=== PATIENT | female | born 1940 | race Caucasian/White ===

== ENCOUNTER 2016-07-12 10:42 | Emergency (ER) | payer MEDICARE, BC ==
[2016-07-12 10:53] VITALS: BP 172/88
[2016-07-12] MEDS ORDERED: Acetaminophen TAB* 325 MG PO ONE (11:32)
--- NOTE | 2016-07-12 11:39 | UC ---
Shoulder Pain HPI - HPI Summary HPI Summary: ONSET OF LEFT SHOULDER PAIN LAST NIGHT AFTER GETTING READY FOR BED. POSSIBLY OVERSTRETCHED IT WHILE RAISING ARMS OVER HEAD TO CHANGE CLOTHES BUT NOT AWARE OF ANY DISCRETE INJURY. COULD NOT SLEEP DUE TO PAIN WHICH IS PERSISTENT. DENIES CP, SOB, NAUSEA, SWEATS. HAS KNOWN H/O AFIB. - History of Current Complaint Chief Complaint: UCUpperExtremity Stated Complaint: ARM PAIN Time Seen by Provider: 07/12/16 11:26 Hx Obtained From: Patient Onset/Duration: Sudden Onset, Lasting Hours, Still Present Timing: Constant Severity Initially: Severe Severity Currently: Severe Location Of Pain: Is Discrete @ - LEFT SHOULDER Pain Intensity: 10 Pain Scale Used: 0-10 Numeric Character: Sharp Aggravating Factor(s): Movement Alleviating Factor(s): Rest Associated Signs And Symptoms: Positive: Negative - Allergies/Home Medications Allergies/Adverse Reactions: Allergies Allergy/AdvReac Type Severity Reaction Status Date / Time Codeine Allergy Severe "MAKES Verified 01/30/16 11:00 FEEL LIKE I'M FLYING" PMH/Surg Hx/FS Hx/Imm Hx Endocrine History Of: Denies: Diabetes, Thyroid Disease Cardiovascular History Of: Reports: Hypertension, Atrial Fibrillation Denies: Cardiac Disorders, Pacemaker/ICD, Congestive Heart Failure Respiratory History Of: Reports: Bronchitis - HX OF Denies: COPD, Asthma GI/ History Of: Denies: Ulcer Psychological History Of: Reports: Depression - OCCASIONALLY, CONTROL WITH MEDS Cancer History Of: Denies: Breast Cancer Other History Of: Anticoagulant Therapy - Surgical History Surgical History: Yes Surgery Procedure, Year, and Place: T&A, TUBAL LIGATION, APPENDECTOMY, CHOLECYSTECTOMY, RIGHT HIP REPLACEMENT, Right TKA - Family History Known Family History: Positive: Cardiac Disease - Mother, Father, Grandfather, Grandmother, Hypertension, Diabetes - Social History Alcohol Use: Occasionally Substance Use Type: None Smoking Status (MU): Former Smoker Type: Cigarettes Amount Used/How Often: 1 PPD Have You Smoked in the Last Year: No When Did the Patient Quit Smoking/Using Tobacco: 1997 Household Exposure Type: Cigarettes - Immunization History Most Recent Influenza Vaccination: 2014 Most Recent Tetanus Shot: 2011 Most Recent Pneumonia Vaccination: 2014 Review of Systems Constitutional: Negative Skin: Negative Respiratory: Negative Cardiovascular: Negative Gastrointestinal: Negative Musculoskeletal: Arthralgia, Decreased ROM All Other Systems Reviewed And Are Negative: Yes Physical Exam Triage Information Reviewed: Yes Appearance: Well-Appearing, Well-Nourished, Pain Distress - SEVERE DISTRESS WITH PALPATION OF LEFT SHOULDER Vital Signs: Initial Vital Signs Temp 97.3 F 07/12/16 10:48 Pulse 97 07/12/16 10:48 Resp 18 07/12/16 10:48 BP 172/88 07/12/16 10:48 Pulse Ox 95 07/12/16 10:48 Vital Signs Reviewed: Yes Eyes: Positive: Conjunctiva Clear ENT: Positive: Hearing grossly normal Neck: Positive: Supple Respiratory: Positive: No respiratory distress, No accessory muscle use Cardiovascular: Positive: Other: - IRREGULAR Abdomen Description: Positive: Soft Musculoskeletal: Positive: No Edema, ROM Limited @ - LEFT SHOULDER, Other: - EXQUISITELY TTP OVER GH JOINT. Neurological: Positive: Alert Psychological: Positive: Age Appropriate Behavior Diagnostics - Radiology LEFT SHOULDER XRAY Xray Interpretation: No Acute Changes Radiology Interpretation Completed By: Radiologist - EKG Cardiac Rate: NL - 89BPM Cardiac Rhythm: AFib: Old ST Segment: Normal Shoulder Course/Dx - Differential Dx/Diagnosis Differential Diagnosis/HQI/PQRI: Arthritis, Bursitis, Rotator Cuff Injury, Sprain, Strain, Other Provider Diagnoses: LEFT SHOULDER PAIN Discharge - Discharge Plan Condition: Stable Disposition: HOME Prescriptions: Hydrocodone-Acetaminophen [Lorcet 5-325 mg] 1 tab PO QID PRN #15 tab MDD 4 PRN Reason: Pain Patient Education Materials: Adhesive Capsulitis (ED), Shoulder Pain (ED) Referrals: Idalia Atwood MD [Medical Doctor] - 1 Week Berta Smith MD [Primary Care Provider] - If Needed Additional Instructions: OSTEOARTHRITIS ON XRAY TODAY BUT NOTHING ACUTE. SLING FOR COMFORT. HYDROCODONE/ APAP NEEDED. FOLLOW-UP WITH ORTHO IF SX NOT IMPROVING OVER THE NEXT WEEK OR SO,
--- NOTE | 2016-07-12 12:06 | RAD ---
HISTORY: Pain, decreased range of motion COMPARISONS: December 15, 2011 VIEWS: 4, Frontal internal rotation, external rotation, and outlet views of the left shoulder FINDINGS: BONE DENSITY: Normal. BONES: There is no displaced fracture. JOINTS: There is advanced osteoarthritis of the glenohumeral joint. ALIGNMENT: There is no dislocation. SOFT TISSUES: Unremarkable. OTHER FINDINGS: None. IMPRESSION: OSTEOARTHRITIS. NO ACUTE OSSEOUS INJURY. IF SYMPTOMS PERSIST, RECOMMEND REPEAT IMAGING.
== END 2016-07-12 12:36 | disposition home or self-care (01) ==
LOC: UCEAST 10:42
DX: M25.512 Pain in left shoulder (principal); Z88.5 Allergy status to narcotic agent; I48.91 Unspecified atrial fibrillation; Z79.01 Long term (current) use of anticoagulants; Z90.49 Acquired absence of other specified parts of digestive tract; Z96.641 Presence of right artificial hip joint; Z87.891 Personal history of nicotine dependence
CPT/HCPCS: 93005; 99212; A9270-GY; G0463

== ENCOUNTER 2016-11-29 11:58 | Inpatient (IN) | payer MEDICARE, BC ==
--- NOTE | 2016-11-21 03:56 | HP ---
PREOPERATIVE HISTORY AND PHYSICAL: DATE OF SURGERY: 11/29/16 DATE OF OFFICE VISIT: 11/18/16 ATTENDING SURGEON: Idalia tAwood MD * (DICTATED BY ALBA MEJIA) PROCEDURE: Left total hip replacement. CHIEF COMPLAINT: Left hip pain. HISTORY OF PRESENT ILLNESS: Ms. Ball is a 75-year-old female, who presents to the clinic for ongoing left hip pain due to severe osteoarthritis. She has failed conservative measures and has therefore agreed to undergo a left total hip replacement with Dr. Atwood on 11/29/16. PAST MEDICAL HISTORY: 1. Obesity. 2. Hypertension. 3. Hypercholesterolemia. 4. Atrial fibrillation. 5. Prediabetes. 6. GERD. PAST SURGICAL HISTORY: 1. Cholecystectomy. 2. Right total hip arthroplasty. 3. Right total knee arthroplasty. 4. Tubal ligation. 5. Tonsillectomy. 6. Adenoidectomy. Denies prior complications with anesthesia. MEDICATIONS: 1. Benzonatate 100 mg 1 by mouth 3 times a day as needed for cough. 2. Losartan potassium/hydrochlorothiazide 100/25 mg 1 by mouth every day. 3. Leg compression machine, use once a day in the evening. 4. Medical alert bracelet or necklace use as needed for emergencies. 5. Compression stockings 20/30 wear during the day, off at night. 6. Nystatin triamcinolone 946285-4.1 units per g, apply twice a day as needed for rash. 7. Bupropion 150 mg take 1 tablet every night. 8. Xarelto 20 mg take 1 by mouth once daily. 9. Aspirin 81 mg daily. 10. Multivitamin 1 daily. 11. Vitamin C 1000 mg 1 every day. 12. [place] 3-6-9 complex 1 tab daily. 13. Famotidine 20 mg take 1 by mouth twice a day as needed. 14. Simvastatin 40 mg take 1 by mouth once a day. 15. Keflex 500 mg 1 by mouth 3 times a day for 7 days. ALLERGIES: To CODEINE. FAMILY HISTORY: Positive for cancer, diabetes, and heart disease. Denies family history of DVT or PE. SOCIAL HISTORY: She lives alone. She is retired. She is a former smoker. She quit in 1997. She denies alcohol or illegal drug use. REVIEW OF SYSTEMS: Negative for fever, chills, night sweats. No known anesthesia problems. HEENT: Negative for headache, lightheadedness, or syncopal episodes. Integumentary: Negative for abrasions, lesions, or open wounds. Cardiothoracic: Positive for hypertension and AFib. Denies chest pain , palpitations, or edema. Pulmonary: Positive for mild shortness of breath with exertion. Denies COPD. GI: Negative for nausea, vomiting, diarrhea, or constipation. Positive for intermittent GERD. : Negative for nocturia, urinary frequency, history of UTIs, or kidney problems. Neuro: Denies numbness , tingling, history of seizure, stroke, epilepsy. Heme: Positive for easy bruising due to the Xarelto. Denies history of bleeding disorders, denies history of DVT or PE. Infectious Disease: Negative for history of MRSA, hep C , or HIV. PHYSICAL EXAMINATION GENERAL: Well-developed, well-nourished 75-year-old female, in no acute distress. Alert and oriented x3. Appropriate mood and affect. Appropriate balance and coordination. VITAL SIGNS: Height 62, weight 226, pulse 92, blood pressure 130/68, temperature 97.1, O2 sat 98%, BMI 41.3. HEENT: Normocephalic, atraumatic. Throat clear. NECK: Supple. PULMONARY: Lungs are clear to auscultation bilaterally. No wheezing, rhonchi, or rales. CARDIO: Regular rate and rhythm. S1 and S2. No murmurs, rubs, or gallops. No edema. ABDOMEN: Positive bowel sounds. Soft, nontender. NEURO: Alert and oriented x3. Cranial nerves grossly intact. Sensation intact to light touch. MUSCULOSKELETAL: Left lower extremity, skin is intact. No abrasions or open wounds, tenderness to palpation over the trochanteric bursa. Hip flexion to 90 degrees, internal rotation to 0 degrees, and 40 degrees of external rotation with severe groin pain, moderate effusion of the knee. No palpable masses or lymph nodes, +5/5 strength ankle plantar flexion and dorsiflexion, +2 posterior tibialis and dorsalis pedis pulses. Sensation intact to light touch distally. DIAGNOSTIC STUDIES/LAB DATA: Multi-view x-rays of the left hip revealed end- stage arthritis with [id number] contact, subchondral sclerosis, and osteophyte formation. IMPRESSION: Left hip severe osteoarthritis. PLAN: The patient is scheduled to undergo a left total hip replacement with Dr. Atwood on 11/29/16. Dr. Atwood explained the risks and complications of the procedure and the patient has agreed to undergo the procedure. She will stop Xarelto 3 days before surgery and it will be continued after surgery per Cardiology's recommendation. She has been cleared by her PCP and her quantitative strategy analyst. She does have a wound on her left lower extremity that has since healed. She will follow up with Dr. Atwood in 10 to 14 days for followup and suture removal. Percocet will be used for postop pain management, Colace for opioid-induced constipation prevention, and the patient's own Xarelto will be used for DVT prophylaxis. ALBA MEJIA [id number]/[facility] #: [id number] MTDElizabeth
[~2016-11-29 11:58] MED LIST: Buffered Lidocaine 0.9% SYRIN* 5 ML/SYR SYRINGE INTRADERM ONE; Buffered Lidocaine 0.9% SYRIN* 5 ML/SYR SYRINGE ONE; Famotidine IV* 10 MG/ML 2 ML (20 mg) IV ONE; Famotidine IV* 10 MG/ML 2 ML (20 mg) ONE; Gabapentin CAP(*) 300 MG ONE; Gabapentin CAP(*) 300 MG PO ONE; ceFAZolin 2 GM PREMIX(*) 2 GM/50 ML BAG IVPB ONE
[2016-11-29] MEDS ORDERED: Midazolam* 1 MG/ML 5 ML VIAL (5 MG) ONE (13:16)
[2016-11-29] MEDS ORDERED: fentaNYL* 50 MCG/ML 2 ML VIAL (100 MCG VIAL) ONE (13:16)
[2016-11-29] MEDS ORDERED: Morphine PF AMP (0.5MG/ML)* 5 MG/10 ML AMP ONE (15:20)
[2016-11-29] MEDS ORDERED: KETAMINE HCL* 50 MG/ML 10 ML VIAL ONE (15:55)
[2016-11-29] MEDS ORDERED: EPHEDrine (Pressors)* 50 MG/ML VIAL ONE (16:26)
[2016-11-29] MEDS ORDERED: Phenylephrine IV* 40 MCG/ML 10 ML SYRINGE ONE (16:26)
[2016-11-29] MEDS ORDERED: Glycopyrrolate IV* 0.2 MG/ML 1 ML VIAL ONE (16:26)
[2016-11-29] MEDS ORDERED: Propofol* 10 MG/ML 20 ML BTL IV PUSH ONE (16:27)
[2016-11-29] MEDS ORDERED: DiMENhydriNATE IV* 50 MG/ML VIAL ONE (16:27)
[2016-11-29] MEDS ORDERED: Ketorolac INJ* 30 MG/ML 1 ML VIAL ONE (16:27)
[2016-11-29] MEDS ORDERED: Ondansetron INJ* 2 MG/ML VIAL ONE (16:27)
[2016-11-29] MEDS ORDERED: Dexamethasone IV* 4 MG/ML 1 ML (4 MG) ONE (16:27)
[2016-11-29] MEDS ORDERED: Acetaminophen TAB* 325 MG PO PRN (17:29)
[2016-11-29] MEDS ORDERED: Ondansetron TAB* 4 MG PO PRN (17:29)
[2016-11-29] MEDS ORDERED: diPHENhydraMINE PO* 25 MG PO PRN (17:29)
[2016-11-29] MEDS ORDERED: diPHENhydraMINE IV* 50 MG/ML 1 ml VIAL (BENADRYL) IV PRN (17:29)
[2016-11-29] MEDS ORDERED: Polyethylene Glycol 3350* 17 GM PACKET PO PRN (17:36)
[2016-11-29] MEDS ORDERED: Bisacodyl SUPP* 10 MG SUPP PR PRN (17:36)
[2016-11-29] MEDS ORDERED: DiMENhydriNATE IV* 50 MG/ML VIAL IV PUSH PRN (17:39)
[2016-11-29] MEDS ORDERED: HYDROmorphone* 1 MG/ML 1 ML SYR IV PRN (17:39)
[2016-11-29] MEDS ORDERED: oxyCODONE/Acetamin 5/325 MG* TAB PO PRN (17:39)
[2016-11-29] MEDS ORDERED: Clotrimazole/Betamethasone CREAM* 15 GM TOPICAL PRN (17:40)
[2016-11-29] MEDS ORDERED: Benzonatate CAP* 100 MG PO PRN (17:40)
[2016-11-29] MEDS ORDERED: Naloxone* 0.4 MG/ML 1 ML VIAL IV PRN (17:41)
[2016-11-29] MEDS ORDERED: Nalbuphine* 20 MG/ML 1 ML VIAL IV PRN (17:41)
[2016-11-29] MEDS ORDERED: Gabapentin CAP(*) 100 MG PO ONE (17:47)
--- NOTE | 2016-11-29 18:35 | RAD ---
Indication: LEFT hip replacement. Comparison: October 17, 2016 Technique: Low AP pelvis RIGHT decubitus crosstable lateral technique. Report: LEFT acetabular component and test fit/reamer femoral component in place. No periprosthetic fracture evident. IMPRESSION: Intraoperative control film.
[2016-11-29] MEDS ORDERED: Gabapentin CAP(*) 100 MG ONE (19:38)
--- NOTE | 2016-11-29 20:01 | RAD ---
Indication: Postop LEFT total hip replacement. Comparison: Intraoperative exam of the same date. Technique: AP pelvis and AP and crosstable lateral views LEFT hip. Report: LEFT total hip prosthesis in place with normal alignment. No periprosthetic fracture evident. Peripheral soft tissue edema and subcutaneous emphysema. RIGHT hip prosthesis noted. Polyarticular degenerative arthropathy. IMPRESSION: Unremarkable immediate postop follow-up LEFT total hip prosthesis.
[2016-11-29] MEDS ORDERED: HYDROCHLO PO SCH (21:00)
[2016-11-29] MEDS ORDERED: LOSARTAN POTASSIUM PO SCH (21:00)
[2016-11-29] MEDS: Docusate CAP* 100 MG PO SCH (21:42)
[2016-11-29] MEDS: Atorvastatin* 20 MG TAB PO SCH (21:42)
[2016-11-29] MEDS: buPROPion SR TAB.SR* 150 MG PO SCH (21:42)
[2016-11-29] MEDS: Magnesium Hydroxide LIQ* 30 ML UDC PO SCH (21:44)
[2016-11-29] MEDS: Ibuprofen TAB* 600 MG PO SCH (23:45)
[2016-11-29] MEDS: ceFAZolin VIAL(*) 1 GM in NS 0.9% 50 ML* 50 ML IVPB SCH (23:45)
--- NOTE | 2016-11-30 00:36 | CONS ---
CC: Jennifer Boo NP * MEDICAL CONSULTATION REPORT: DATE OF CONSULTATION: 11/29/16 REQUESTING PROVIDER: Idalia Atwood MD CONSULTING PROVIDER: ALBA Corrigan SUPERVISING PHYSICIAN: Jose Sawant MD REASON FOR CONSULT: Status post left total hip arthroplasty with request for consultation regarding medical co-management. HISTORY OF PRESENT ILLNESS: This is a 75-year-old female with atrial fibrillation, chronically anticoagulated on Xarelto as well as hypertension, hyperlipidemia, GERD, obesity, and prediabetes, who presented today for elective left total hip arthroplasty with Dr. Atwood. Hospitalist group has been asked to consult for medical co-management. The patient was evaluated by her orchid worker, Dr. Paul, and primary care provider, Dr. Boo, preoperatively. Dr. Paul did not suggest any additional cardiac imaging preoperatively. Last stress test was November 2015 and within normal limits. Dr. Boo did not recommend any changes preoperatively, but did treat with 7 days of Keflex for some mild erythema of the left faith that was associated with a dog scratch. The patient states that that has since resolved. The patient is evaluated postoperatively and she denies significant surgical site pain. Denies chest pain, shortness of breath, abdominal pain, nausea, or vomiting. She denies any recent illness or other cardiac complaints. The patient interrupted her Xarelto as instructed. Her last dose was 11/25/16. She also discontinued various supplements that she was instructed to do so, including fish oil and her 81 mg aspirin that would be implicated in increased bleeding risk. Recommend per Cardiology is to resume Xarelto postoperatively. The patient did not receive any bridging therapy. PAST MEDICAL HISTORY: 1. Hypertension. 2. Hyperlipidemia. 3. AFib. 4. Prediabetes. 5. GERD. 6. Obesity with a BMI of 37. PAST SURGICAL HISTORY: 1. Cholecystectomy. 2. Right total hip replacement. 3. Right total knee replacement. 4. Tubal ligation. 5. Tonsil and adenoidectomy. HOME MEDICATIONS: 1. Acetaminophen 2 tablets p.o. q.8 hours as needed for pain or fever. 2. Vitamin C supplement 1000 mg p.o. daily. 3. Aspirin 81 mg p.o. daily. 4. Tessalon 100 mg p.o. t.i.d. as needed for cough. 5. Clotrimazole/betamethasone cream apply topically twice daily as needed for rash. 6. Pepcid 20 mg p.o. twice daily as needed. 7. Losartan/hydrochlorothiazide, unknown concentration with instructions to take 1 tab p.o. at bedtime. 8. Multivitamin 1 capsule p.o. daily. 9. [place]-3 fatty acid 1 capsule p.o. daily. 10. Xarelto 20 mg p.o. daily. 11. Simvastatin 40 mg p.o. at bedtime. 12. Wellbutrin sustained release 150 mg p.o. at bedtime. SOCIAL HISTORY: The patient lives alone. She quit smoking in 1997 and rarely consumes alcohol. REVIEW OF SYSTEMS: As noted above in HPI. All other systems reviewed and considered negative. PHYSICAL EXAMINATION: Most recent vitals: Temperature 96.8 degrees Fahrenheit , pulse 68 beats per minute, respiratory rate 14, oxygen saturation 99% on 3 L, and blood pressure 124/55 mmHg. General: This is a pleasant 75-year-old female accompanied by multiple family members, in no acute distress. HEENT: Head is normocephalic and atraumatic. Mucous membranes are pink and moist. Neck: Neck is supple and free of lymphadenopathy. Cardiovascular: Heart has a regular rate and rhythm without murmurs, rubs, or gallops. Respiratory: Lungs are clear to auscultation without wheezes, crackles, or rhonchi. Abdomen : Abdomen is soft and nontender to palpation. Extremities: She has a hip pillow in place. Distal pulses intact without significant edema. Psych: The patient is alert and appropriately oriented. LABORATORY EVALUATION: Reviewed labs from 11/15/16, which included normal CBC with a white blood cell count of 6600, hemoglobin of 13.7 g/dL, platelet count of 304,000. Comprehensive metabolic panel is unremarkable with a preop creatinine of 0.81. Urinalysis is unremarkable. TSH is 1.03. Last hemoglobin A1c from August 2016 was 5.7%. ASSESSMENT AND PLAN: This is a pleasant 75-year-old female with hypertension, hyperlipidemia, chronic AFib, prediabetes, obesity, and gastroesophageal reflux disease, who underwent elective total hip arthroplasty with Dr. Atwood earlier today. Hospitalist group has been asked to consult for her medical comanagement. 1. Status post left total hip arthroplasty - postop management per Orthopedic Surgery including DVT prophylaxis, pain management and discharge planning. 2. Atrial fibrillation - this appears to be appropriately rate controlled. She is chronically anticoagulated with Xarelto which has been interrupted preoperatively. We would recommend resuming tomorrow if deemed acceptable by Orthopedic Surgery team. 3. Hypertension - we will hold her losartan and hydrochlorothiazide at this time and resume if blood pressure allows. 4. Hyperlipidemia. Continue simvastatin. 5. Depression. Continue Wellbutrin. 6. Prediabetes - last hemoglobin A1c of less than 6%. I do not believe that regular glucose monitoring is necessary postoperatively. 7. Code status. The patient is full code. 8. DVT prophylaxis. Xarelto per Orthopedic Surgery. 9. Healthcare proxy is unknown. DISPOSITION: The patient is being admitted to inpatient status under the care of orthopedic surgery team. Hospitalist group will continue to follow along during her postoperative course. ALBA CORRIGAN [id number]/[facility] #: [id number] TOMI
[2016-11-30] MEDS: oxyCODONE/Acetamin 5/325 MG* TAB PO PRN ×3 (03:13→11:55)
[2016-11-30] MEDS: Ibuprofen TAB* 600 MG PO SCH ×2 (05:13→10:16)
[2016-11-30 05:58] LABS: Hematocrit 33 % (35-47); Hemoglobin 10.8 g/dl (12.0-16.0)
[2016-11-30 06:09] LABS: BUN/Creatinine Ratio 20.2 (8-20); Calcium 8.4 mg/dL (8.6-10.3); EGFR African American 74.3 (>60); EGFR Non-African American 57.7 (>60); Potassium 4.3 mmol/L (3.5-5.0)
[2016-11-30] MEDS ORDERED: NS 0.9% 500 ML BAG* 500 ML IV ONE (07:00)
[2016-11-30] MEDS ORDERED: Morphine INJ* 10 MG/ML 1 ML SYRINGE IV PRN (07:35)
[2016-11-30] MEDS: ceFAZolin VIAL(*) 1 GM in NS 0.9% 50 ML* 50 ML IVPB SCH ×2 (08:33→15:52)
[2016-11-30] MEDS: Docusate CAP* 100 MG PO SCH ×2 (08:34→21:00)
[2016-11-30] MEDS: oxyCODONE TAB* 5 MG TAB PO PRN ×3 (08:34→21:00)
[2016-11-30] MEDS: Multivitamins/Minera Areds(NF) 1 CAP CAP PO SCH (08:35)
[2016-11-30] MEDS: Magnesium Hydroxide LIQ* 30 ML UDC PO SCH ×2 (08:35→21:01)
[2016-11-30] MEDS: Aspirin EC Low Dose* 81 MG TAB.EC PO SCH (08:35)
[2016-11-30] MEDS: Vitamin THERAPEUTIC TAB PO SCH (08:35)
[2016-11-30] MEDS ORDERED: Rivaroxaban TAB(*) 20 MG TAB PO SCH (09:00)
--- NOTE | 2016-11-30 10:12 | PN ---
Progress Note - Progress Note Date of Service: 11/30/16 SOAP: Subjective: []Patient seen at bedside, pain well managed. Denies SOB, CP or dizziness. Would like to be considered for PMRU rehab. Objective: [] Vital Signs Temp 98.5 F 11/30/16 07:42 Pulse 81 11/30/16 07:42 Resp 18 11/30/16 08:34 BP 126/48 11/30/16 07:42 Pulse Ox 93 11/30/16 09:14 Intake & Output 11/29/16 11/30/16 11/30/16 18:59 06:59 18:59 Intake Total 1900 2005 501 Output Total 250 150 Balance 1650 1855 501 Weight 226 lb Intake: IV Fluids 1900 945 501 ABX - CEFAZOLIN 55 L 1900 LR 890 NS (0.9%) 501 Oral 1060 Output: Haji 250 150 Other: # Bowel Movements 0 Laboratory Results - last 24 hr 11/29/16 11/30/16 11/30/16 12:26 05:12 05:12 Hgb 10.8 L Hct 33 L INR (Anticoag Therapy) 0.97 1.06 Sodium Potassium Chloride Carbon Dioxide Anion Gap BUN Creatinine Est GFR ( Amer) Est GFR (Non-Af Amer) BUN/Creatinine Ratio Glucose Calcium 11/30/16 05:12 Hgb Hct INR (Anticoag Therapy) Sodium 137 Potassium 4.3 Chloride 104 Carbon Dioxide 28 Anion Gap 5 BUN 19 Creatinine 0.94 Est GFR ( Amer) 74.3 Est GFR (Non-Af Amer) 57.7 BUN/Creatinine Ratio 20.2 H Glucose 135 H Calcium 8.4 L Left hip dressings are dry and intact calf mild tenderness to palpation, Elizabeth's sign negative +DF/PF left ankle sensation intact distally Assessment: []s/p Left total hip arthroplasty POD #1 Plan: []PT/OT WBAT LLE Hold Xarelto per Rakesh Herrera while in house PMRU consult
[2016-11-30] MEDS: Enoxaparin(*) 40 MG/0.4 ML SYR SUBCUT SCH (10:17)
--- NOTE | 2016-11-30 11:51 | PN ---
Subjective Date of Service: 11/30/16 Interval History: Patient seen and examined at bedside. She reports good pain control, denies CP, SOB, abd pain, n/v. No acute concerns expressed at this time. Family History: Unchanged from Admission Social History: Unchanged from Admission Past Medical History: Unchanged from Admission Objective Active Medications: Acetaminophen (Tylenol Tab*) 650 mg PO Q4H PRN PRN Reason: mild pain or fever Aspirin (Aspirin Ec Low Dose*) 81 mg PO DAILY [facility] Last Admin: 11/30/16 08:35 Dose: 81 mg Atorvastatin Calcium (Lipitor*) 20 mg PO BEDTIME [facility] Last Admin: 11/29/16 21:42 Dose: 20 mg Benzonatate (Tessalon Cap*) 100 mg PO TID PRN PRN Reason: COUGH Betamethasone/Clotrimazole (Lotrisone Cream*) 1 applic TOPICAL BID PRN PRN Reason: RASH Bisacodyl (Dulcolax Supp*) 10 mg [place] DAILY PRN PRN Reason: constipation Bupropion HCl (Wellbutrin Sr Tab*) 150 mg PO BEDTIME [facility] Last Admin: 11/29/16 21:42 Dose: 150 mg Diphenhydramine HCl (Benadryl Iv*) 12.5 mg IV Q6H PRN PRN Reason: PRURITIS Diphenhydramine HCl (Benadryl Po*) 25 mg PO Q6H PRN PRN Reason: INSOMNIA Docusate Sodium (Colace Cap*) 100 mg PO BID [facility] Last Admin: 11/30/16 08:34 Dose: 100 mg Enoxaparin Sodium (Lovenox(*)) 40 mg SUBCUT DAILY [facility] Last Admin: 11/30/16 10:17 Dose: 40 mg Famotidine (Pepcid Tab*) 20 mg PO BID PRN PRN Reason: HEARTBURN Cefazolin Sodium 1 gm/ Sodium (Chloride) 50 mls @ 200 mls/hr IVPB Q8H [facility] Stop: 11/30/16 16:14 Last Admin: 11/30/16 08:33 Dose: 200 mls/hr Lactated Ringer's (Lactated Ringers 1000 Ml Bag*) 1,000 mls @ 100 mls/hr IV PER RATE [facility] Last Admin: 11/30/16 07:06 Dose: 100 mls/hr Ibuprofen (Motrin Tab*) 600 mg PO Q6H [facility] Stop: 11/30/16 14:00 Last Admin: 11/30/16 10:16 Dose: 600 mg Lactulose (Lactulose*) 30 ml PO Q6H PRN PRN Reason: constipation Magnesium Hydroxide (Milk Of Magnesia Liq*) 30 ml PO BID [facility] Last Admin: 11/30/16 08:35 Dose: 30 ml Morphine Sulfate (Morphine Inj (Syringe)*) 5 mg IV Q2H PRN PRN Reason: PAIN Multivitamins (Theragran Tab*) 1 tab PO DAILY [facility] Last Admin: 11/30/16 08:35 Dose: 1 tab Multivitamins/Minerals (Preservision Areds(Multivitamins/Mineral)(Nf)) 1 cap PO DAILY [facility] Last Admin: 11/30/16 08:35 Dose: Not Given Ondansetron HCl (Zofran Inj*) 4 mg IV Q6H PRN PRN Reason: nausea Ondansetron HCl (Zofran Tab*) 4 mg PO Q6H PRN PRN Reason: NAUSEA Oxycodone HCl (Roxycodone Tab*) 10 mg PO Q4H PRN PRN Reason: breakthru pain Last Admin: 11/30/16 08:34 Dose: 10 mg Oxycodone/Acetaminophen (Percocet 5/325 Tab*) 1 tab PO Q3H PRN PRN Reason: PAIN - MODERATE Oxycodone/Acetaminophen (Percocet 5/325 Tab*) 1 tab PO ONCE PRN PRN Reason: PAIN - MODERATE Stop: 11/30/16 17:40 Polyethylene Glycol/Electrolytes (Miralax*) 17 gm PO DAILY PRN PRN Reason: Constipation Vital Signs 11/29/16 11/29/16 11/29/16 12:27 18:25 18:30 Temperature 97.9 F 102.0 F Pulse Rate 84 77 61 Respiratory 16 14 16 Rate Blood Pressure 139/78 93/50 104/52 (mmHg) O2 Sat by Pulse 96 97 95 Oximetry 11/29/16 11/29/16 11/29/16 18:35 19:00 19:15 Temperature Pulse Rate 56 53 75 Respiratory 12 10 14 Rate Blood Pressure 106/56 106/60 149/92 (mmHg) O2 Sat by Pulse 95 97 97 Oximetry 11/29/16 11/29/16 11/29/16 19:30 19:46 20:00 Temperature 96.8 F Pulse Rate 75 52 68 Respiratory 13 12 14 Rate Blood Pressure 156/85 126/58 124/55 (mmHg) O2 Sat by Pulse 99 99 99 Oximetry 11/29/16 11/29/16 11/29/16 20:40 20:41 21:43 Temperature 97.4 F 97.3 F Pulse Rate 72 58 Respiratory 16 16 16 Rate Blood Pressure 128/56 117/50 (mmHg) O2 Sat by Pulse 100 100 Oximetry 11/29/16 11/30/16 11/30/16 22:37 00:35 02:51 Temperature 97.7 F 97.3 F 98.0 F Pulse Rate 54 60 70 Respiratory 16 16 16 Rate Blood Pressure 110/62 117/88 132/45 (mmHg) O2 Sat by Pulse 100 98 93 Oximetry 11/30/16 11/30/16 11/30/16 03:13 05:13 06:20 Temperature Pulse Rate Respiratory 16 16 16 Rate Blood Pressure (mmHg) O2 Sat by Pulse Oximetry 11/30/16 11/30/16 11/30/16 07:42 08:00 08:20 Temperature 98.5 F Pulse Rate 81 Respiratory 16 16 18 Rate Blood Pressure 126/48 (mmHg) O2 Sat by Pulse 95 93 Oximetry 11/30/16 11/30/16 11/30/16 08:34 09:14 10:19 Temperature Pulse Rate Respiratory 18 18 Rate Blood Pressure (mmHg) O2 Sat by Pulse 93 Oximetry Oxygen Devices in Use Now: None Appearance: Older female, OOB to chair, in NAD Eyes: No Scleral Icterus Ears/Nose/Mouth/Throat: Clear Oropharnyx, Mucous Membranes Moist Neck: NL Appearance and Movements; NL JVP Respiratory: Symmetrical Chest Expansion and Respiratory Effort, Clear to Auscultation Cardiovascular: NL Sounds; No Murmurs; No JVD, RRR Abdominal: NL Sounds; No Tenderness; No Distention Extremities: - - trace edema to BLE, left hip dressing c/d/i, distally nvi Neurological: Alert and Oriented x 3, NL Muscle Strength and Tone Lines/Tubes/Other Access: Clean, Dry and Intact Peripheral IV Nutrition: Taking PO's Result Diagrams: 11/30/16 05:12 11/30/16 05:12 Assess/Plan/Problems-Billing Assessment: Ms. Ball is a 75 yo female with a PMH of HTN, HLD, atrial fib, depression, and prediabetes who was admitted on 11/29 for an elective left total hip replacement. - Patient Problems (1) Status post total replacement of left hip Code(s): Z96.642 - PRESENCE OF LEFT ARTIFICIAL HIP JOINT Comment: POD #1 Management per ortho HH stable PT/OT (2) Afib Code(s): I48.91 - UNSPECIFIED ATRIAL FIBRILLATION Comment: Rate controlled Pt is currently on enoxaparin per ortho. Restart rivaroxaban when ok with ortho. (3) HTN (hypertension) Code(s): I10 - ESSENTIAL (PRIMARY) HYPERTENSION Comment: Normotensive Continue to hold losartan and HCTZ at this time. Resume when blood pressure allows. (4) HLD (hyperlipidemia) Code(s): E78.5 - HYPERLIPIDEMIA, UNSPECIFIED Comment: Continue statin. (5) GERD (gastroesophageal reflux disease) Code(s): K21.9 - GASTRO-ESOPHAGEAL REFLUX DISEASE WITHOUT ESOPHAGITIS Comment : Continue home famotidine. (6) DVT prophylaxis Comment: Per ortho Enoxaparin (7) Full code status Code(s): Z78.9 - OTHER SPECIFIED HEALTH STATUS Status and Disposition: Inpatient admission. Dispo per ortho.
[2016-11-30] MEDS: Ondansetron INJ* 2 MG/ML VIAL IV PRN (15:27)
--- NOTE | 2016-11-30 15:35 | OP ---
DATE OF OPERATION: 11/29/16 - ROOM #342 DATE OF : 36. ATTENDING SURGEON: Idalia Atwood MD. HOME APPLIANCE TECHNICIAN: ALBA Vences. Ms. Villanueva did help throughout the procedure with preparation of the leg, wound retraction, manipulation of the hip, and closure. ANESTHESIOLOGIST: Dr. Hui. ANESTHESIA: Spinal. PREOPERATIVE DIAGNOSIS: Severe endstage degenerative osteoarthritis of the left hip joint. POSTOPERATIVE DIAGNOSIS: As above. OPERATIVE PROCEDURE: Left total hip arthroplasty. COMPLICATIONS: None. ESTIMATED BLOOD LOSS: 200 cc. SPECIMENS: Femoral head and acetabular reaming sent to Pathology. HARDWARE USED: [place] uncemented total hip hardware. For the cup, Tritanium cluster hole shell 56E, one 25-mm cancellous bone screw. For the insert, Trident X3 0-degree polyethylene insert 40E. For the femur size 4, Accolade TMZF, with a 127-degree neck. For the head, a Biolox delta ceramic head size 40 with a -2.5 taper adaptor sleeve. BRIEF HISTORY/INDICATION: Ms. Ball is a 75-year-old female with years of increasingly severe left hip pain. She failed conservative treatment with antiinflammatories, pain medication, ambulatory assistive devices, and physical therapy. Radiographs confirmed [id number] arthritis. She elected to undergo left total hip arthroplasty due to continued pain and decreased quality of life. Informed consent was obtained from the patient. She understood the risks of the surgery included, but were not limited to bleeding, infection, damage to nearby structures, continued pain, need for further surgery, intraoperative fracture, nerve palsy, hardware failure or loosening, dislocation, leg length discrepancy, stroke, heart attack, blood clot and . She wished to proceed. INTRAOPERATIVE FINDINGS: Intraoperatively, the patient was noted to have extensive wear of the acetabular bone with sclerosis. She had near protrusio. Femoral bone demonstrated osteopenia and complete loss of cartilage along the femoral head. She had extensive osteophyte formation along the acetabulum. DESCRIPTION OF PROCEDURE: Ms. Ball was identified in the preanesthesia unit. Her left lower extremity was marked as the correct operative side. Informed consent was signed and placed in the chart. The patient was taken to the operating room and placed under spinal anesthesia. A Haji catheter was placed. The patient was placed in the right lateral decubitus position on the peg board and all bony prominences were well padded. Left lower extremity was prepped and draped in usual sterile fashion. Preop time-out was made to correctly identify the patient's side and site. Appropriate perioperative antibiotics were given within 1 hour of incision. A 15-cm standard posterior hip incision was made with a #10 blade. Electrocautery was used to dissect down through the subcutaneous fat to the lateral fascial layer. Lateral fascial layer was incised in line with the skin incision. A Charnley retractor was placed. The piriformis and conjoint tendons were identified. These were elevated off the posterolateral femur using electrocautery and tagged with two #5 Ethibonds. Electrocautery was then used to make a posterior capsular flap and this was also tagged with two #5 Ethibonds. The hip was carefully dislocated. Lesser trochanter to the center of the femoral head measured 55 mm. Oscillating saw was used to make the appropriate femoral neck cut and the femoral head was sent to Pathology. Femoral head had complete loss of cartilage. The femur was carefully retracted anteriorly. After appropriate placement of retractor, the acetabulum was visualized. A long-handled knife was used to sharply remove the remaining labrum from the acetabular rim. The acetabular rim had significant rim of osteophytes. The acetabulum was sequentially reamed up to a size 55. Size 55 trial had a satisfactory fit. There was a bleeding subchondral bone bed for the implant. Final implant chosen with a cluster hole Tritanium shell size 56. This was impacted into the acetabulum without difficulty. Satisfactory abduction and anteversion was obtained. One 25-mm screw was placed in the superior posterior quadrant. A 40E Trident X3 0-degree polyethylene insert was chosen at the liner. This was impacted into the acetabulum without difficulty. Stability of the liner was checked and rechecked and noted to be stable. A thin osteotome was used to remove some rim osteophytes to avoid impingement with range of motion. Attention was turned next to preparation of the femur. A canal finder was used to enter the proximal femur. Osteopenia was noted. The femur canal was sequentially broached up to a size 4. Size 4 had good stability. A 127 neck trial with a 40, +0 femoral head was chosen. Lesser troch to center of the femoral head measured 58 mm. Therefore, a 40 -2.5 femoral head trial was chosen. Lesser trochanter to the center of the femoral head measured more near 55 mm. The hip was reduced and taken through range of motion. The hip was stable in all position with good soft-tissue tension. The hip was carefully dislocated. All trials were removed. Final implant chosen was size 4 Accolade TMZF stem, femoral stem with a 127-degree neck. This was impacted into the femoral canal without difficulty. There was good stability and anteversion of the stem. A 40, -2.5 Biolox delta ceramic femoral head was chosen and impacted onto the femoral neck. Lesser trochanter to the center of the femoral head measured 55 mm. The hip was reduced and taken through a range of motion. The hip was stable in all positions. The hip was copiously irrigated with sterile saline. Previously tagged capsule and tendons were reapproximated to the posterolateral femur through 2 trochanteric drill holes. The hip was once again copiously irrigated with sterile saline. Lateral fascial layer was closed using interrupted #1 Vicryls. The rest of the incision was closed in a layered fashion using 0 and 2-0 Vicryls. Skin was closed using running 3-0 Monocryl and Dermabond. Sterile Adaptic, 4x4s, and paper tape were used to cover the incision. The patient's anesthesia was reversed without difficulty. She was taken to the PACU in stable condition. Intended weightbearing will be weightbearing as tolerated with posterior hip precautions. Intended DVT prophylaxis will be Coumadin with a Lovenox bridge. [id number]/[facility] #: [id number] TOMI
--- NOTE | 2016-11-30 19:15 | PN ---
Hospitalist Progress Note Notified by nursing staff that there has been no urine output since Haji removed at 10a. Bladder scan reading zero. Recommended replacing the Haji for the night to monitor urine output and/or address acute retention that is not being accurately reflected by the bladder scanner.
[2016-11-30] MEDS: buPROPion SR TAB.SR* 150 MG PO SCH (21:00)
[2016-11-30] MEDS: Atorvastatin* 20 MG TAB PO SCH (21:00)
[2016-11-30] MEDS: Famotidine TAB* 20 MG PO PRN (23:38)
[2016-12-01] MEDS: oxyCODONE/Acetamin 5/325 MG* TAB PO PRN ×4 (03:57→23:58)
[2016-12-01 06:08] LABS: Hematocrit 30 % (35-47); Hemoglobin 9.8 g/dl (12.0-16.0)
[2016-12-01] MEDS: Vitamin THERAPEUTIC TAB PO SCH (08:26)
[2016-12-01] MEDS: Aspirin EC Low Dose* 81 MG TAB.EC PO SCH (08:26)
[2016-12-01] MEDS: Docusate CAP* 100 MG PO SCH ×2 (08:26→20:45)
[2016-12-01] MEDS: Enoxaparin(*) 40 MG/0.4 ML SYR SUBCUT SCH (08:27)
[2016-12-01] MEDS: oxyCODONE TAB* 5 MG TAB PO PRN (08:27)
[2016-12-01] MEDS: Magnesium Hydroxide LIQ* 30 ML UDC PO SCH ×2 (08:27→20:45)
[2016-12-01] MEDS: Multivitamins/Minera Areds(NF) 1 CAP CAP PO SCH (08:36)
[2016-12-01] MEDS: Famotidine TAB* 20 MG PO PRN (10:36)
[2016-12-01] MEDS ORDERED: traMADol TAB* 50 MG PO PRN (10:48)
--- NOTE | 2016-12-01 10:48 | PN ---
Progress Note - Progress Note Date of Service: 12/01/16 SOAP: Subjective: []Patient seen OOB in chair. Still having feelings of nausea with pain medications with or without food. Had urinary retention last night with vaughan catheter placement which was just removed this am. She was denied PMRU as she is doing very well in PT. She will hopes to go home tomorrow. Objective: [] Vital Signs Temp 98.0 F 12/01/16 07:52 Pulse 76 12/01/16 07:52 Resp 18 12/01/16 10:27 BP 137/49 12/01/16 07:52 Pulse Ox 95 12/01/16 08:00 Intake & Output 11/30/16 12/01/16 12/01/16 18:59 06:59 18:59 Intake Total 1989 2162 648 Output Total 150 550 Balance 1839 1612 648 Intake: IV Fluids 1184 1362 288 LR 683 1362 288 NS (0.9%) 501 IVPB 55 110 ABX - CEFAZOLIN 55 110 Oral 750 690 360 Output: Vaughan 150 550 Other: # Bowel Movements 0 Laboratory Results - last 24 hr 12/01/16 05:46 Hgb 9.8 L Hct 30 L Left hip dressings removed, minimal bloody drainage, incision healing well, + ecchymosis distal end of incision calf tenderness resolved +DF/PF left ankle sensation intact Assessment: []s/p Left total hip arthroplasty POD #2 Plan: []PT/OT WBAT try Tramadol for pain Lovenox in house, start Xarelto 20 mg qd at home after discharge Discharge home Monday if medically stable
[2016-12-01] MEDS ORDERED: PROCHLORPERAZINE INJ 5 MG/ML 2 ML VIAL IV PRN (12:08)
--- NOTE | 2016-12-01 12:08 | PN ---
Subjective Date of Service: 12/01/16 Interval History: Patient seen and examined at bedside. Patient reports adequate pain control. Required vaughan catheter to be reinserted overnight due to urinary retention Resolved this morning, no previous hx of urinary retention. Denies dysuria Denies CP, SOB, n/v, fever/chills. Family History: Unchanged from Admission Social History: Unchanged from Admission Past Medical History: Unchanged from Admission Objective Active Medications: Acetaminophen (Tylenol Tab*) 650 mg PO Q4H PRN PRN Reason: mild pain or fever Aspirin (Aspirin Ec Low Dose*) 81 mg PO DAILY [facility] Last Admin: 12/01/16 08:26 Dose: 81 mg Atorvastatin Calcium (Lipitor*) 20 mg PO BEDTIME [facility] Last Admin: 11/30/16 21:00 Dose: 20 mg Benzonatate (Tessalon Cap*) 100 mg PO TID PRN PRN Reason: COUGH Betamethasone/Clotrimazole (Lotrisone Cream*) 1 applic TOPICAL BID PRN PRN Reason: RASH Bisacodyl (Dulcolax Supp*) 10 mg IN DAILY PRN PRN Reason: constipation Bupropion HCl (Wellbutrin Sr Tab*) 150 mg PO BEDTIME [facility] Last Admin: 11/30/16 21:00 Dose: 150 mg Diphenhydramine HCl (Benadryl Iv*) 12.5 mg IV Q6H PRN PRN Reason: PRURITIS Diphenhydramine HCl (Benadryl Po*) 25 mg PO Q6H PRN PRN Reason: INSOMNIA Docusate Sodium (Colace Cap*) 100 mg PO BID [facility] Last Admin: 12/01/16 08:26 Dose: 100 mg Enoxaparin Sodium (Lovenox(*)) 40 mg SUBCUT DAILY [facility] Last Admin: 12/01/16 08:27 Dose: 40 mg Famotidine (Pepcid Tab*) 20 mg PO BID PRN PRN Reason: HEARTBURN Last Admin: 12/01/16 10:36 Dose: 20 mg Lactated Ringer's (Lactated Ringers 1000 Ml Bag*) 1,000 mls @ 100 mls/hr IV PER RATE [facility] Last Admin: 12/01/16 03:55 Dose: 100 mls/hr Lactulose (Lactulose*) 30 ml PO Q6H PRN PRN Reason: constipation Magnesium Hydroxide (Milk Of Magnesia Liq*) 30 ml PO BID [facility] Last Admin: 12/01/16 08:27 Dose: 30 ml Morphine Sulfate (Morphine Inj (Syringe)*) 5 mg IV Q2H PRN PRN Reason: PAIN Multivitamins (Theragran Tab*) 1 tab PO DAILY [facility] Last Admin: 12/01/16 08:26 Dose: 1 tab Multivitamins/Minerals (Preservision Areds(Multivitamins/Mineral)(Nf)) 1 cap PO DAILY [facility] Last Admin: 12/01/16 08:36 Dose: Not Given Ondansetron HCl (Zofran Inj*) 4 mg IV Q6H PRN PRN Reason: nausea Last Admin: 11/30/16 15:27 Dose: 4 mg Ondansetron HCl (Zofran Tab*) 4 mg PO Q6H PRN PRN Reason: NAUSEA Oxycodone HCl (Roxycodone Tab*) 10 mg PO Q4H PRN PRN Reason: breakthru pain Last Admin: 12/01/16 08:27 Dose: 10 mg Oxycodone/Acetaminophen (Percocet 5/325 Tab*) 1 tab PO Q3H PRN PRN Reason: PAIN - MODERATE Last Admin: 12/01/16 03:57 Dose: 1 tab Polyethylene Glycol/Electrolytes (Miralax*) 17 gm PO DAILY PRN PRN Reason: Constipation Prochlorperazine Edisylate (Compazine Inj*) 5 mg IV Q6H PRN PRN Reason: NAUSEA/VOMITING Tramadol HCl (Ultram*) 50 mg PO Q6H PRN PRN Reason: moderate pain Vital Signs 11/30/16 11/30/16 11/30/16 13:47 13:52 15:27 Temperature Pulse Rate Respiratory 18 16 18 Rate Blood Pressure (mmHg) O2 Sat by Pulse Oximetry 11/30/16 11/30/16 11/30/16 15:42 16:00 20:00 Temperature 97.8 F Pulse Rate 79 Respiratory 15 17 Rate Blood Pressure 121/47 (mmHg) O2 Sat by Pulse 94 94 Oximetry 11/30/16 11/30/16 11/30/16 20:05 21:00 23:00 Temperature 98.9 F Pulse Rate 80 Respiratory 17 17 16 Rate Blood Pressure 141/48 (mmHg) O2 Sat by Pulse 95 Oximetry 11/30/16 12/01/16 12/01/16 23:26 01:32 03:26 Temperature 98.2 F 98.2 F Pulse Rate 78 79 Respiratory 16 18 Rate Blood Pressure 136/45 133/50 (mmHg) O2 Sat by Pulse 95 95 94 Oximetry 12/01/16 12/01/16 12/01/16 03:57 05:57 07:52 Temperature 98.0 F Pulse Rate 76 Respiratory 17 16 16 Rate Blood Pressure 137/49 (mmHg) O2 Sat by Pulse 95 Oximetry 12/01/16 12/01/16 12/01/16 08:00 08:27 10:27 Temperature Pulse Rate Respiratory 16 18 18 Rate Blood Pressure (mmHg) O2 Sat by Pulse 95 Oximetry 12/01/16 11:22 Temperature 98.2 F Pulse Rate 102 Respiratory 16 Rate Blood Pressure 140/52 (mmHg) O2 Sat by Pulse 94 Oximetry Oxygen Devices in Use Now: None Appearance: Older female patient, lying in bed, NAD Eyes: No Scleral Icterus Ears/Nose/Mouth/Throat: Clear Oropharnyx, Mucous Membranes Moist Neck: NL Appearance and Movements; NL JVP Respiratory: Symmetrical Chest Expansion and Respiratory Effort, Clear to Auscultation Cardiovascular: NL Sounds; No Murmurs; No JVD, RRR Abdominal: NL Sounds; No Tenderness; No Distention Extremities: No Clubbing, Cyanosis, - - left hip dressing c/d/i, distally nvi Skin: No Rash or Ulcers Neurological: Alert and Oriented x 3, NL Muscle Strength and Tone Lines/Tubes/Other Access: Clean, Dry and Intact Peripheral IV Nutrition: Taking PO's Result Diagrams: 12/01/16 05:46 11/30/16 05:12 Assess/Plan/Problems-Billing Assessment: Ms. Ball is a 75 yo female with a PMH of HTN, HLD, atrial fib, depression, and prediabetes who was admitted on 11/29 for an elective left total hip replacement. - Patient Problems (1) Status post total replacement of left hip Code(s): Z96.642 - PRESENCE OF LEFT ARTIFICIAL HIP JOINT Comment: POD #2 Management per ortho HH stable PT/OT (2) Acute urinary retention Code(s): R33.8 - OTHER RETENTION OF URINE Comment: Suspect secondary to oxycodone Patient switched to tramadol Continue bladder scan q4h (3) Afib Code(s): I48.91 - UNSPECIFIED ATRIAL FIBRILLATION Comment: Rate controlled Pt is currently on enoxaparin per ortho. Restart rivaroxaban when ok with ortho. (4) HTN (hypertension) Code(s): I10 - ESSENTIAL (PRIMARY) HYPERTENSION Comment: Normotensive, BP climbing to 140s-150s Resume losartan, hold HCTZ (5) HLD (hyperlipidemia) Code(s): E78.5 - HYPERLIPIDEMIA, UNSPECIFIED Comment: Continue statin. (6) GERD (gastroesophageal reflux disease) Code(s): K21.9 - GASTRO-ESOPHAGEAL REFLUX DISEASE WITHOUT ESOPHAGITIS Comment : Continue home famotidine. (7) DVT prophylaxis Comment: Per ortho Enoxaparin (8) Full code status Code(s): Z78.9 - OTHER SPECIFIED HEALTH STATUS Status and Disposition: Inpatient admission. Dispo per ortho.
[2016-12-01] MEDS: Ondansetron INJ* 2 MG/ML VIAL IV PRN (12:37)
[2016-12-01] MEDS: Atorvastatin* 20 MG TAB PO SCH (21:00)
[2016-12-01] MEDS ORDERED: Losartan TAB* 25 MG PO SCH (21:00)
[2016-12-01] MEDS: buPROPion SR TAB.SR* 150 MG PO SCH (21:00)
[2016-12-02] MEDS: oxyCODONE/Acetamin 5/325 MG* TAB PO PRN ×3 (04:00→13:04)
[2016-12-02] MEDS: Famotidine TAB* 20 MG PO PRN (04:00)
[2016-12-02 05:58] LABS: Hematocrit 26 % (35-47); Hemoglobin 8.9 g/dl (12.0-16.0)
[2016-12-02] MEDS: Docusate CAP* 100 MG PO SCH (08:15)
--- NOTE | 2016-12-02 08:17 | PN ---
Progress Note - Progress Note Date of Service: 12/02/16 SOAP: Subjective: 75 y/o female s/p L [facility] 11/29/[address] Atwood. Afebrile overnight, vss. Patient feeling well, no complaints, eager fo D/C home. + BM, working well with PT. Objective: General- Well appearing, NAD MSK- Incision d/c/i, mild ecchymosis around incision, + DF/PF b/l LEs, PT 2+. neg homans sign b/l. Sensation grossly intact. Vital Signs Temp 98.4 F 12/02/16 03:30 Pulse 77 12/02/16 03:35 Resp 18 12/02/16 06:00 BP 115/46 12/02/16 03:35 Pulse Ox 98 12/02/16 03:30 Intake & Output 12/01/16 12/02/16 12/02/16 18:59 06:59 18:59 Intake Total 1288 1910 Output Total 825 400 Balance 463 1510 Intake: IV Fluids 288 LR 288 Oral 1000 1910 Output: Urine 625 400 Haji 200 Other: Date of Last Bowel 12/02/16 Movement # Bowel Movements 1 1 Estimated Stool Amount Large Small Laboratory Results - last 24 hr 12/02/16 05:30 Hgb 8.9 L Hct 26 L Assessment: 75 y/o female s/p L [facility] 11/29/[address] Atwood. Plan: - WOrk with PT this AM - DVT prophylaxis- Lovenox in house, begin xarelto at home, continue ASA 81mg - Pain medication- Ultram, percocet - D/C to home this afternoon, follow up with DR. Atwood within 10-14 days Active Medications Generic Name Dose Route Start Last Admin Trade Name Freq PRN Reason Stop Dose Admin Acetaminophen 650 mg 11/29/16 17:29 Tylenol Tab* PO Q4H PRN mild pain or fever Aspirin 81 mg 11/30/16 09:00 12/01/16 08:26 Aspirin Ec Low Dose* PO 81 mg DAILY [facility] Administration Atorvastatin Calcium 20 mg 11/29/16 21:00 12/01/16 21:00 Lipitor* PO 20 mg BEDTIME [facility] Administration Benzonatate 100 mg 11/29/16 17:40 Tessalon Cap* PO TID PRN COUGH Betamethasone/Clotrimazole 1 applic 11/29/16 17:40 Lotrisone Cream* TOPICAL BID PRN RASH Bisacodyl 10 mg 11/29/16 17:36 Dul[address]ax Supp* CT DAILY PRN constipation Bupropion HCl 150 mg 11/29/16 21:00 12/01/16 21:00 Wellbutrin Sr Tab* PO 150 mg BEDTIME [facility] Administration Diphenhydramine HCl 12.5 mg 11/29/16 17:29 Benadryl Iv* IV Q6H PRN PRURITIS Diphenhydramine HCl 25 mg 11/29/16 17:29 Benadryl Po* PO Q6H PRN INSOMNIA Docusate Sodium 100 mg 11/29/16 21:00 12/01/16 20:45 Colace Cap* PO Not Given BID [facility] Enoxaparin Sodium 40 mg 11/30/16 10:30 12/01/16 08:27 Lovenox(*) SUBCUT 40 mg DAILY [facility] Administration Famotidine 20 mg 11/30/16 00:00 12/02/16 04:00 Pepcid Tab* PO 20 mg BID PRN Administration HEARTBURN Lactated Ringer's 1,000 mls @ 100 mls/hr 11/29/16 18:00 12/01/16 03:55 Lactated Ringers 1000 Ml Bag* IV 100 mls/hr PER RATE [facility] Administration Lactulose 30 ml 11/29/16 17:36 12/01/16 14:32 Lactulose* PO 30 ml Q6H PRN Administration constipation Losartan Potassium 100 mg 12/01/16 21:00 12/01/16 21:00 Cozaar Tab* PO 100 mg BEDTIME [facility] Administration Magnesium Hydroxide 30 ml 11/29/16 21:00 12/01/16 20:45 Milk Of Magnesia Liq* PO Not Given BID [facility] Morphine Sulfate 5 mg 11/30/16 07:35 Morphine Inj (Syringe)* IV Q2H PRN PAIN Multivitamins 1 tab 11/30/16 09:00 12/01/16 08:26 Theragran Tab* PO 1 tab DAILY [facility] Administration Multivitamins/Minerals 1 cap 11/30/16 09:00 12/01/16 08:36 Preservision Areds(Multivitamins/Mineral)(Nf) PO Not Given DAILY [facility] Ondansetron HCl 4 mg 11/29/16 17:29 12/01/16 12:37 Zofran Inj* IV 4 mg Q6H PRN Administration nausea Ondansetron HCl 4 mg 11/29/16 17:29 Zofran Tab* PO Q6H PRN NAUSEA Oxycodone HCl 10 mg 11/30/16 07:35 12/01/16 08:27 Roxycodone Tab* PO 10 mg Q4H PRN Administration breakthru pain Oxycodone/Acetaminophen 1 tab 11/30/16 09:44 12/02/16 04:00 Percocet 5/325 Tab* PO 1 tab Q3H PRN Administration PAIN - MODERATE Polyethylene Glycol/Electrolytes 17 gm 11/29/16 17:36 Miralax* PO DAILY PRN Constipation Prochlorperazine Edisylate 5 mg 12/01/16 12:08 Compazine Inj* IV Q6H PRN NAUSEA/VOMITING Tramadol HCl 50 mg 12/01/16 10:48 12/01/16 13:03 Ultram* PO 50 mg Q6H PRN Administration moderate pain
[2016-12-02] MEDS: Multivitamins/Minera Areds(NF) 1 CAP CAP PO SCH (08:18)
[2016-12-02] MEDS: Magnesium Hydroxide LIQ* 30 ML UDC PO SCH (08:18)
[2016-12-02] MEDS: Vitamin THERAPEUTIC TAB PO SCH (08:21)
[2016-12-02] MEDS: Aspirin EC Low Dose* 81 MG TAB.EC PO SCH (08:21)
[2016-12-02] MEDS: Enoxaparin(*) 40 MG/0.4 ML SYR SUBCUT SCH (08:24)
--- NOTE | 2016-12-02 12:47 | PN ---
Subjective Date of Service: 12/02/16 Interval History: Patient seen and examined at bedside. Denies fever/chills, CP, SOB, abd pain, n/v. Plan for d/c to home today. Patient reports good pain control. No other acute concerns. Family History: Unchanged from Admission Social History: Unchanged from Admission Past Medical History: Unchanged from Admission Objective Active Medications: Acetaminophen (Tylenol Tab*) 650 mg PO Q4H PRN PRN Reason: mild pain or fever Aspirin (Aspirin Ec Low Dose*) 81 mg PO DAILY [facility] Last Admin: 12/02/16 08:21 Dose: 81 mg Atorvastatin Calcium (Lipitor*) 20 mg PO BEDTIME [facility] Last Admin: 12/01/16 21:00 Dose: 20 mg Benzonatate (Tessalon Cap*) 100 mg PO TID PRN PRN Reason: COUGH Betamethasone/Clotrimazole (Lotrisone Cream*) 1 applic TOPICAL BID PRN PRN Reason: RASH Bisacodyl (Dulcolax Supp*) 10 mg DC DAILY PRN PRN Reason: constipation Bupropion HCl (Wellbutrin Sr Tab*) 150 mg PO BEDTIME [facility] Last Admin: 12/01/16 21:00 Dose: 150 mg Diphenhydramine HCl (Benadryl Iv*) 12.5 mg IV Q6H PRN PRN Reason: PRURITIS Diphenhydramine HCl (Benadryl Po*) 25 mg PO Q6H PRN PRN Reason: INSOMNIA Docusate Sodium (Colace Cap*) 100 mg PO BID [facility] Last Admin: 12/02/16 08:15 Dose: Not Given Enoxaparin Sodium (Lovenox(*)) 40 mg SUBCUT DAILY [facility] Last Admin: 12/02/16 08:24 Dose: 40 mg Famotidine (Pepcid Tab*) 20 mg PO BID PRN PRN Reason: HEARTBURN Last Admin: 12/02/16 04:00 Dose: 20 mg Lactated Ringer's (Lactated Ringers 1000 Ml Bag*) 1,000 mls @ 100 mls/hr IV PER RATE [facility] Last Admin: 12/01/16 03:55 Dose: 100 mls/hr Lactulose (Lactulose*) 30 ml PO Q6H PRN PRN Reason: constipation Last Admin: 12/01/16 14:32 Dose: 30 ml Losartan Potassium (Cozaar Tab*) 100 mg PO BEDTIME [facility] Last Admin: 12/01/16 21:00 Dose: 100 mg Magnesium Hydroxide (Milk Of Magnannie Liq*) 30 ml PO BID [facility] Last Admin: 12/02/16 08:18 Dose: Not Given Morphine Sulfate (Morphine Inj (Syringe)*) 5 mg IV Q2H PRN PRN Reason: PAIN Multivitamins (Theragran Tab*) 1 tab PO DAILY [facility] Last Admin: 12/02/16 08:21 Dose: 1 tab Multivitamins/Minerals (Preservision Areds(Multivitamins/Mineral)(Nf)) 1 cap PO DAILY [facility] Last Admin: 12/02/16 08:18 Dose: Not Given Ondansetron HCl (Zofran Inj*) 4 mg IV Q6H PRN PRN Reason: nausea Last Admin: 12/01/16 12:37 Dose: 4 mg Ondansetron HCl (Zofran Tab*) 4 mg PO Q6H PRN PRN Reason: NAUSEA Oxycodone HCl (Roxycodone Tab*) 10 mg PO Q4H PRN PRN Reason: breakthru pain Last Admin: 12/01/16 08:27 Dose: 10 mg Oxycodone/Acetaminophen (Percocet 5/325 Tab*) 1 tab PO Q3H PRN PRN Reason: PAIN - MODERATE Last Admin: 12/02/16 08:21 Dose: 1 tab Polyethylene Glycol/Electrolytes (Miralax*) 17 gm PO DAILY PRN PRN Reason: Constipation Prochlorperazine Edisylate (Compazine Inj*) 5 mg IV Q6H PRN PRN Reason: NAUSEA/VOMITING Tramadol HCl (Ultram*) 50 mg PO Q6H PRN PRN Reason: moderate pain Last Admin: 12/01/16 13:03 Dose: 50 mg Vital Signs 12/01/16 12/01/16 12/01/16 13:03 15:03 15:45 Temperature 98.9 F Pulse Rate 91 Respiratory 18 18 15 Rate Blood Pressure 160/50 (mmHg) O2 Sat by Pulse 100 Oximetry 12/01/16 12/01/16 12/01/16 16:00 18:09 19:57 Temperature 98.0 F Pulse Rate 95 Respiratory 18 18 Rate Blood Pressure 143/43 (mmHg) O2 Sat by Pulse 100 95 Oximetry 12/01/16 12/01/16 12/01/16 20:00 20:09 21:01 Temperature Pulse Rate Respiratory 20 18 20 Rate Blood Pressure (mmHg) O2 Sat by Pulse Oximetry 12/01/16 12/01/16 12/01/16 23:01 23:54 23:58 Temperature 98.3 F Pulse Rate 88 Respiratory 18 16 20 Rate Blood Pressure 134/45 (mmHg) O2 Sat by Pulse 94 Oximetry 12/02/16 12/02/16 12/02/16 01:58 03:30 03:35 Temperature 98.4 F Pulse Rate 88 77 Respiratory 18 16 Rate Blood Pressure 128/39 115/46 (mmHg) O2 Sat by Pulse 98 Oximetry 12/02/16 12/02/16 12/02/16 04:00 06:00 08:21 Temperature Pulse Rate Respiratory 20 18 16 Rate Blood Pressure (mmHg) O2 Sat by Pulse Oximetry 12/02/16 08:28 Temperature 98.0 F Pulse Rate 80 Respiratory 12 Rate Blood Pressure 116/36 (mmHg) O2 Sat by Pulse 97 Oximetry Oxygen Devices in Use Now: None Appearance: Older female, OOB to chair, in NAD Eyes: No Scleral Icterus Ears/Nose/Mouth/Throat: Mucous Membranes Moist Neck: NL Appearance and Movements; NL JVP Respiratory: Symmetrical Chest Expansion and Respiratory Effort, Clear to Auscultation Cardiovascular: NL Sounds; No Murmurs; No JVD, RRR Neurological: Alert and Oriented x 3 Lines/Tubes/Other Access: Clean, Dry and Intact Peripheral IV Result Diagrams: 12/02/16 05:30 11/30/16 05:12 Assess/Plan/Problems-Billing Assessment: Ms. Ball is a 75 yo female with a PMH of HTN, HLD, atrial fib, depression, and prediabetes who was admitted on 11/29 for an elective left total hip replacement. - Patient Problems (1) Status post total replacement of left hip Code(s): Z96.642 - PRESENCE OF LEFT ARTIFICIAL HIP JOINT Comment: POD #3 Management per ortho HH stable PT/OT (2) Acute urinary retention Code(s): R33.8 - OTHER RETENTION OF URINE Comment: Resolved Suspect secondary to oxycodone Patient switched to tramadol (3) Afib Code(s): I48.91 - UNSPECIFIED ATRIAL FIBRILLATION Comment: Rate controlled Pt is currently on enoxaparin per ortho. Restart rivaroxaban when ok with ortho. (4) HTN (hypertension) Code(s): I10 - ESSENTIAL (PRIMARY) HYPERTENSION Comment: Normotensive Continue losartan Resume HCTZ upon dc (5) HLD (hyperlipidemia) Code(s): E78.5 - HYPERLIPIDEMIA, UNSPECIFIED Comment: Continue statin. (6) GERD (gastroesophageal reflux disease) Code(s): K21.9 - GASTRO-ESOPHAGEAL REFLUX DISEASE WITHOUT ESOPHAGITIS Comment : Continue home famotidine. (7) DVT prophylaxis Comment: Per ortho Enoxaparin (8) Full code status Code(s): Z78.9 - OTHER SPECIFIED HEALTH STATUS Status and Disposition: Inpatient admission. Dispo per ortho.
[2016-12-02 15:35] VITALS: BP 116/42
== END 2016-12-02 14:30 | disposition home health service (06) | DRG 470 ==
LOC: AA 11:58 → SSU 20:35
PROVIDERS: ADMIT Orthopaedic Surgery Adult Reconstructive Orthopaedic Surgery; ATTEND Orthopaedic Surgery Adult Reconstructive Orthopaedic Surgery
PROC: 0SRB04A Replacement of Left Hip Joint with Ceramic on Polyethylene Synthetic Substitute, Uncemented, Open Approach (ICD-10-PCS; 2016-11-29)
PROC: 0T9B70Z Drainage of Bladder with Drainage Device, Via Natural or Artificial Opening (ICD-10-PCS; principal; 2016-11-30)
DX: M16.12 Unilateral primary osteoarthritis, left hip (principal); Z68.41 Body mass index [BMI] 40.0-44.9, adult; I48.2 Chronic atrial fibrillation; E66.9 Obesity, unspecified; I10 Essential (primary) hypertension; E78.00 Pure hypercholesterolemia, unspecified; K21.9 Gastro-esophageal reflux disease without esophagitis; Z96.641 Presence of right artificial hip joint; Z96.651 Presence of right artificial knee joint; E78.5 Hyperlipidemia, unspecified; F32.9 Major depressive disorder, single episode, unspecified; R73.03 Prediabetes; M85.862 Other specified disorders of bone density and structure, left lower leg; M25.752 Osteophyte, left hip; Z90.49 Acquired absence of other specified parts of digestive tract; Z98.51 Tubal ligation status; Z88.5 Allergy status to narcotic agent; Z82.49 Family history of ischemic heart disease and other diseases of the circulatory system; Z83.3 Family history of diabetes mellitus; Z80.9 Family history of malignant neoplasm, unspecified; Z87.891 Personal history of nicotine dependence; R33.9 Retention of urine, unspecified
CPT/HCPCS: 36415; 72170; 80048; 85014; 85018; 85610; 94760; A9270-GY; C1713; C1776; J0690; J1100; J1240; J1650; J1885; J2250; J2405; J2704; J3010

== ENCOUNTER 2017-06-06 11:06 | Emergency (ER) | payer MEDICARE, BC ==
[2017-06-06 11:32] VITALS: BP 142/83
--- NOTE | 2017-06-06 12:13 | UC ---
Throat Pain/Nasal Pawel HPI - HPI Summary HPI Summary: Patient presents with complaints of sore throat x 3 days, with increased coughing today. She has been taking robitussin and throat lozenges with no improvement. She states she is able to eat, drink and swallow her own secretions. She denies chest pain, dyspnea, abdominal pain, nausea, vomiting, or diarrhea. - History of Current Complaint Chief Complaint: UCRespiratory Stated Complaint: CHEST CONGESTION Time Seen by Provider: 06/06/17 12:01 Hx Obtained From: Patient Onset/Duration: Gradual Onset, Lasting Days Severity: Worse Since: - today Pain Intensity: 6 Associated Signs & Symptoms: Positive: Negative - Epiglottits Risk Factors Epiglottis Risk Factors: Negative - Allergies/Home Medications Allergies/Adverse Reactions: Allergies Allergy/AdvReac Type Severity Reaction Status Date / Time MS Codeine [Codeine] Allergy Severe "MAKES Verified 06/06/17 11:32 FEEL LIKE I'M FLYING" Home Medications: Home Medications Docusate CAP* [Colace Cap*] 100 mg PO BID PRN 06/06/17 [History Confirmed ] PMH/Surg Hx/FS Hx/Imm Hx Previously Healthy: Yes Endocrine History: Dyslipidemia Cardiovascular History: Hypertension, Other - a-fib Other Cardiovascular History: a-fib GI/ History: Gastroesophageal Reflux Other History Of: Anticoagulant Therapy - Surgical History Surgical History: Yes Surgery Procedure, Year, and Place: T&A, TUBAL LIGATION, APPENDECTOMY, CHOLECYSTECTOMY, RIGHT AN LEFT HIP REPLACEMENT, Right TKA - Family History Known Family History: Positive: Cardiac Disease - Mother, Father, Grandfather, Grandmother, Hypertension, Diabetes - Social History Occupation: Retired Lives: Alone Alcohol Use: Rare Alcohol Amount: WINE 2 X YEAR Substance Use Type: None Smoking Status (MU): Former Smoker Type: Cigarettes Amount Used/How Often: 1 PPD Have You Smoked in the Last Year: No When Did the Patient Quit Smoking/Using Tobacco: 1997 Household Exposure Type: Cigarettes - Immunization History Most Recent Influenza Vaccination: 2014 Most Recent Tetanus Shot: 2011 Most Recent Pneumonia Vaccination: 2014 Review of Systems Constitutional: Fatigue Skin: Negative Eyes: Negative ENT: Sore Throat, Nasal Discharge, Sinus Congestion Respiratory: Cough Cardiovascular: Negative Gastrointestinal: Negative Genitourinary: Negative Motor: Negative Neurovascular: Negative Musculoskeletal: Negative Neurological: Negative Psychological: Negative Is Patient Immunocompromised?: No All Other Systems Reviewed And Are Negative: Yes Physical Exam Triage Information Reviewed: Yes Appearance: Well-Appearing Vital Signs: Initial Vital Signs Temp 97.5 F 06/06/17 11:27 Pulse 98 06/06/17 11:27 Resp 16 06/06/17 11:27 BP 142/83 06/06/17 11:27 Pulse Ox 96 06/06/17 11:27 Vital Signs Reviewed: Yes Eye Exam: Normal ENT: Positive: Pharyngeal erythema, Nasal congestion, Nasal drainage, Uvula midline Neck exam: Normal Neck: Positive: 1 Respiratory Exam: Normal Cardiovascular Exam: Normal Abdominal Exam: Normal Skin Exam: Normal Throat Pain/Nasal Course/Dx - Course Course Of Treatment: Patient was treated with zpk, for pharyngitis. - Differential Dx/Diagnosis Differential Diagnosis/HQI/PQRI: Pharyngitis Provider Diagnoses: pharyngitis Discharge - Discharge Plan Condition: Stable Disposition: HOME Prescriptions: Azithromycin TAB* [Zithromax TAB (Z-RUPALI) 250 mg #6 tabs] 250 mg PO DAILY #6 tab Patient Education Materials: Pharyngitis (ED) Referrals: Jennifer Boo NP [Primary Care Provider] -
== END 2017-06-06 12:23 | disposition home or self-care (01) ==
LOC: UCEAST 11:06
DX: J02.9 Acute pharyngitis, unspecified (principal); Z88.5 Allergy status to narcotic agent; I10 Essential (primary) hypertension; I48.91 Unspecified atrial fibrillation; K21.9 Gastro-esophageal reflux disease without esophagitis; Z79.01 Long term (current) use of anticoagulants; Z96.643 Presence of artificial hip joint, bilateral; Z87.891 Personal history of nicotine dependence; E78.5 Hyperlipidemia, unspecified
CPT/HCPCS: 99212; G0463

== ENCOUNTER 2018-10-02 06:39 | Day surgery (SDC) | payer MEDICARE, BC ==
[~2018-10-02 06:39] MED LIST changes: +Acetaminophen TAB* 325 MG PO PRN; -Buffered Lidocaine 0.9% SYRIN* 5 ML/SYR SYRINGE INTRADERM ONE; -Buffered Lidocaine 0.9% SYRIN* 5 ML/SYR SYRINGE ONE; +Buffered Lidocaine 1% SYRIN* 1 ML/SYRINGE INTRADERM ONE; -Famotidine IV* 10 MG/ML 2 ML (20 mg) IV ONE; -Famotidine IV* 10 MG/ML 2 ML (20 mg) ONE; -Gabapentin CAP(*) 300 MG ONE; -Gabapentin CAP(*) 300 MG PO ONE; -ceFAZolin 2 GM PREMIX(*) 2 GM/50 ML BAG IVPB ONE
[2018-10-02] MEDS ORDERED: fentaNYL* 50 MCG/ML 2 ML VIAL (100 MCG VIAL) ONE (07:26)
[2018-10-02] MEDS ORDERED: Midazolam* 1 MG/ML 5 ML VIAL (5 MG) ONE (07:27)
[2018-10-02 08:07] VITALS: BP 141/57
--- NOTE | 2018-10-02 10:05 | OP ---
DATE OF OPERATION: 10[facility]02/18 [facility] DATE OF : 36 SURGEON: Dr. Aron Thomas DOOR PATCHER: None. ANESTHESIA: Topical with intravenous sedation. PRE-OP DIAGNOSIS: Cataract, right eye. POST-OP DIAGNOSIS: Cataract, right eye. OPERATIVE PROCEDURE: Phacoemulsification and cataract extraction with posterior chamber intraocular lens implant, right eye. COMPLICATIONS: None. BLOOD LOSS: None. OPERATIVE FINDINGS: The patient was brought to the operating room and received a small amount of intravenous sedation. A drop of Tetracaine was placed in her right eye. She was prepped and draped in the usual sterile fashion for ophthalmic surgery and attention was directed to the right eye where a speculum was placed. A paracentesis was created at the 11 o'clock position and 0.1 cc of 1 percent preservative-free Lidocaine was injected into the anterior chamber followed by DisCoVisc. The eye was digitally stabilized while a 2.75 mm keratome was used to create a triplanar clear corneal incision at the 9 o'clock position. A continuous curvilinear capsulorrhexis was created with a cystotome and Utrata forceps. BSS on a cannula was used to hydrodissect the lens from the capsule. Phacoemulsification was performed in a [id number] technique to create four fragments which were removed. Residual cortical material was removed with irrigation and aspiration. DisCoVisc was used to inflate the capsular bag and an AU00T0 19.0 diopter lens was folded and inserted into the capsular bag. DisCoVisc was removed using irrigation and aspiration. BSS on a cannula was used to hydrate the corneal stroma and seal the wound. At the end of the case the pupil was round and the lens was centered. The eye was of normal pressure and the wound was water tight. The speculum was removed and topical Maxitrol ointment was placed on the surface of the eye. The eye was closed, patched and shielded and the patient was sent to the recovery room in stable condition with post operative instructions and follow-up appointment given. [id number]/CPS #: [id number] TOMI
[2018-10-02] MEDS ORDERED: Cyclopentolate 1% OPTH.SOL* 2 ML BTL ONE (12:57)
[2018-10-02] MEDS ORDERED: Lidocaine 1%* 5 ML VIAL ONE (12:58)
[2018-10-02] MEDS ORDERED: Phenylephrine OPHTH SOL 2.5%* 2 ML ONE (12:58)
[2018-10-02] MEDS ORDERED: Tropicamide 1% OPTH.SOL* BTL ONE (12:58)
[2018-10-02] MEDS ORDERED: Tetracaine 0.5% OPTH.SOL 4 ML* 1 DROP BTL ONE (12:58)
[2018-10-02] MEDS ORDERED: Ketorolac 0.5% OPHTH (NF) 0.5 % 5 ML BTL ONE (12:58)
[2018-10-02] MEDS ORDERED: Neomycin/Polymy/Dex OPHTH.OIN* 3.5 GM ONE (12:58)
== END 2018-10-02 08:20 | disposition home or self-care (01) ==
LOC: OREAST 06:39
PROVIDERS: ATTEND Ophthalmology
DX: H25.11 Age-related nuclear cataract, right eye (principal); I10 Essential (primary) hypertension; E78.00 Pure hypercholesterolemia, unspecified; I48.2 Chronic atrial fibrillation; Z87.891 Personal history of nicotine dependence; K21.9 Gastro-esophageal reflux disease without esophagitis; M19.90 Unspecified osteoarthritis, unspecified site; Z79.01 Long term (current) use of anticoagulants
CPT/HCPCS: A9270-GY; J2250; J3010; V2632

== ENCOUNTER 2018-10-09 09:19 | Day surgery (SDC) | payer MEDICARE, BC ==
[2018-10-09] MEDS ORDERED: fentaNYL* 50 MCG/ML 2 ML VIAL (100 MCG VIAL) ONE (11:00)
[2018-10-09] MEDS ORDERED: Midazolam* 1 MG/ML 5 ML VIAL (5 MG) ONE (11:00)
[2018-10-09] MEDS ORDERED: Tetracaine 0.5% OPTH.SOL 4 ML* 1 DROP BTL ONE (11:28)
[2018-10-09] MEDS ORDERED: Tropicamide 1% OPTH.SOL* BTL ONE (11:28)
[2018-10-09] MEDS ORDERED: Ketorolac 0.5% OPHTH (NF) 0.5 % 5 ML BTL ONE (11:28)
[2018-10-09] MEDS ORDERED: Phenylephrine OPHTH SOL 2.5%* 2 ML ONE (11:28)
[2018-10-09] MEDS ORDERED: Cyclopentolate 1% OPTH.SOL* 2 ML BTL ONE (11:28)
[2018-10-09] MEDS ORDERED: Lidocaine 1%* 5 ML VIAL ONE (11:28)
[2018-10-09] MEDS ORDERED: Neomycin/Polymy/Dex OPHTH.OIN* 3.5 GM ONE (11:28)
[2018-10-09 12:20] VITALS: BP 137/58
--- NOTE | 2018-10-09 12:54 | OP ---
DATE OF OPERATION: 10/09/18 [facility] DATE OF : 36 SURGEON: Dr. Aron Thomas. ASE CERTIFIED TECHNICIAN: None. ANESTHESIA: Topical with intravenous sedation. PRE-OP DIAGNOSIS: Cataract, left eye. POST-OP DIAGNOSIS: Cataract, left eye. OPERATIVE PROCEDURE: Phacoemulsification and cataract extraction with posterior chamber intraocular lens implant, left eye. COMPLICATIONS: None. BLOOD LOSS: None. DESCRIPTION OF PROCEDURE: The patient was brought to the operating room and received a small amount of intravenous sedation. A drop of Tetracaine was placed in her left eye. She was prepped and draped in the usual sterile fashion for ophthalmic surgery and attention was directed to the left eye where a speculum was placed. A paracentesis was created at the 5 o'clock position and 0.1 cc of 1 percent preservative-free Lidocaine was injected into the anterior chamber followed by DisCoVisc. The eye was digitally stabilized while a 2.75 mm keratome was used to create a triplanar clear corneal incision at the 3 o'clock position. A continuous curvilinear capsulorrhexis was created with a cystotome and Utrata forceps. BSS on a cannula was used to hydrodissect the lens from the capsule. Phacoemulsification was performed in a divide-and- conquer technique to create four fragments which were removed. Residual cortical material was removed with irrigation and aspiration. DisCoVisc was used to inflate the capsular bag and an AU00T0 20.0 diopter lens was folded and inserted into the capsular bag. DisCoVisc was removed using irrigation and aspiration. BSS on a cannula was used to hydrate the corneal stroma and seal the wound. At the end of the case the pupil was round and the lens was centered. The eye was of normal pressure and the wound was water tight. The speculum was removed and topical Maxitrol ointment was placed on the surface of the eye. The eye was closed, patched and shielded and the patient was sent to the recovery room in stable condition with post operative instructions and follow-up appointment given. [id number]/CPS #: [id number] TOMI
== END 2018-10-09 12:28 | disposition home or self-care (01) ==
LOC: OREAST 09:19
PROVIDERS: ATTEND Ophthalmology
DX: H25.12 Age-related nuclear cataract, left eye (principal); I48.91 Unspecified atrial fibrillation; Z79.01 Long term (current) use of anticoagulants; Z87.891 Personal history of nicotine dependence; J44.9 Chronic obstructive pulmonary disease, unspecified
CPT/HCPCS: A9270-GY; J2250; J3010; V2632

== ENCOUNTER 2019-05-20 10:16 | Inpatient (IN) | payer MEDICARE, BC ==
[2019-05-20] MEDS ORDERED: NS 0.9% 1000 ML** 1,000 ML IV ONE (10:24)
[2019-05-20] MEDS ORDERED: Ondansetron ODT TAB* 4 MG PO ONE (10:24)
[2019-05-20] MEDS ORDERED: Meclizine TAB* 12.5 MG PO ONE (10:24)
--- NOTE | 2019-05-20 10:26 | ED ---
Dizziness - HPI Summary HPI Summary: Pt is an 78 y/o F presenting to the ED brought in by EMS for dizziness. Per EMS , she woke up around 0745 and was fine, laid down again, woke up about an hour later incredibly dizzy. EMS states she denies any recent falls, trauma, recent illness, headache, or hx of vertigo. She currently takes Xarelto. Pt endorses nausea and that moving her head worsens the dizziness. She denies any recent sinus or ear issues, blurred vision, chest pain, palpitations, SOB, weakness, or numbness. - History Of Current Complaint Chief Complaint: EDDizziness Stated Complaint: DIZZY PER EMS Hx Obtained From: Patient, EMS Onset/Duration: Still Present, Suddenly Timing: Hours Severity Initially: Moderate Severity Currently: Moderate Character: Dizzy Aggravating Factor(s): Change In Head Position Alleviating Factor(s): Nothing Associated Signs And Symptoms: Positive: Nausea. Negative: Chest Pain, SOB, Palpitations, Visual Changes - Allergies/Home Medications Allergies/Adverse Reactions: Allergies Allergy/AdvReac Type Severity Reaction Status Date / Time codeine Allergy Severe "makes Verified 10/09/18 09:50 feel like I'M flying" Home Medications: Home Medications Ascorbic Acid TAB* [Vitamin C TAB*] 1,000 mg PO DAILY 05/20/19 [History Confirmed 05/20/19] Carbamide Peroxide 6.5% OTIC* [DEBROX 6.5% Otic*] 5 - 10 drop BOTH EARS DAILY [History Confirmed 05/20/19] Nystatin/Triamcinolone CR(NF) [Mycolog CREAM(NF)] 1 applic TOPICAL BID PRN 05/20 [History Confirmed 05/20/19] PMH/Surg Hx/FS Hx/Imm Hx Previously Healthy: Yes Endocrine/Hematology History: Reports: Hx Anticoagulant Therapy, Hx Diabetes - pre-diabetes Denies: Hx Thyroid Disease Cardiovascular History: Reports: Hx Atrial Fibrillation, Hx Hypertension Denies: Hx Congestive Heart Failure, Hx Pacemaker/ICD, Other Cardiovascular Problems/Disorders Respiratory History: Reports: Other Respiratory Problems/Disorders - HX OF NUMEROUS PNEUMONIA CHILD AND ADULT. NONE SINCE VACINE SEVERAL YRS Denies: Hx Asthma, Hx Chronic Obstructive Pulmonary Disease (COPD) GI History: Reports: Hx Gastroesophageal Reflux Disease - PRN MEDS Denies: Hx Ulcer Musculoskeletal History: Reports: Hx Arthritis - BILATERAL KNEES,, Hx Bursitis - left hip Denies: Hx Rheumatoid Arthritis, Hx Osteoporosis Sensory History: Reports: Hx Cataracts - BEGINNING, Hx Contacts or Glasses - READING GLASSES Denies: Hx Hearing Aid Opthamlomology History: Reports: Hx Cataracts - BEGINNING, Hx Contacts or Glasses - READING GLASSES Psychiatric History: Reports: Hx Depression - OCCASIONALLY, CONTROL WITH MEDS - Cancer History Hx Chemotherapy: No Hx Radiation Therapy: No - Surgical History Surgery Procedure, Year, and Place: T&A, TUBAL LIGATION, APPENDECTOMY, CHOLECYSTECTOMY, RIGHT AN LEFT HIP REPLACEMENT, Right TKA Hx Anesthesia Reactions: No Infectious Disease History: No Infectious Disease History: Denies: Hx Hepatitis, Hx Human Immunodeficiency Virus (HIV), Traveled Outside the [place] in Last 30 Days - Family History Known Family History: Positive: Cardiac Disease - Mother, Father, Grandfather, Grandmother, Hypertension, Diabetes - Social History Alcohol Use: Rare Alcohol Amount: WINE 2 X YEAR Hx Substance Use: No Substance Use Type: Reports: None Hx Tobacco Use: Yes Smoking Status (MU): Former Smoker Type: Cigarettes Amount Used/How Often: 1 PPD Have You Smoked in the Last Year: No Review of Systems Negative: Blurred Vision Negative: Other - recent ear or sinus infections Negative: Palpitations, Chest Pain Negative: Shortness Of Breath Positive: Nausea Neurological: Other - dizziness Positive: Headache. Negative: Weakness, Numbness All Other Systems Reviewed And Are Negative: Yes Physical Exam - Summary Physical Exam Summary: VITAL SIGNS: Reviewed. GENERAL: Patient is an obese female who is lying comfortable in the stretcher. Patient is not in any acute respiratory distress. HEAD AND FACE: No signs of trauma. No ecchymosis, hematomas or skull depressions. No sinus tenderness. EYES: PERRLA, EOMI x 2, No injected conjunctiva, no nystagmus. No photophobia. EARS: Hearing grossly intact. Ear canals and tympanic membranes are within normal limits. MOUTH: Oropharynx within normal limits. NECK: Supple, trachea is midline, no adenopathy, no JVD, no carotid bruit, no c- spine tenderness, neck with full ROM. No meningeal signs, no Kernig's or brudzinskis signs. CHEST: Symmetric, no tenderness at palpation. LUNGS: Clear to auscultation bilaterally. No wheezing or crackles. CVS: Irregular rate and rhythm, S1 and S2 present, no murmurs or gallops appreciated. ABDOMEN: Soft, non-tender. No signs of distention. No rebound, no guarding, and no masses palpated. Bowel sounds are normal. EXTREMITIES: FROM in all major joints, no edema, no cyanosis or clubbing. NEURO: Alert and oriented x 3. No acute neurological deficits. Speech is normal and follows commands. SKIN: Dry and warm. GCS: 15 Triage Information Reviewed: Yes Vital Signs On Initial Exam: Initial Vitals Temp Pulse Resp BP Pulse Ox 97.7 F 72 16 173/97 97 05/20/19 10:17 05/20/19 10:17 05/20/19 10:17 05/20/19 10:17 05/20/19 10:17 Vital Signs Reviewed: Yes - Jarod Coma Scale Best Eye Response: 4 - Spontaneous Best Motor Response: 6 - Obeys Commands Best Verbal Response: 5 - Oriented Coma Scale Total: 15 Procedures - Sedation Patient Received Moderate/Deep Sedation with Procedure: No Diagnostics - Vital Signs Vital Signs Temp Pulse Resp BP Pulse Ox 05/20/19 10:17 97.7 F 72 16 173/97 97 - Laboratory Result Diagrams: 05/20/19 10:40 05/20/19 10:40 Lab Statement: Any lab studies that have been ordered have been reviewed, and results considered in the medical decision making process. - Radiology CXR Radiology Interpretation Completed By: Radiologist Summary of Radiographic Findings: Mild airspace opacification the right lung base (atelectasis versus infiltrate). ED physician has reviewed this report. - CT Brain CT CT Interpretation Completed By: Radiologist Summary of CT Findings: 1. NO EVIDENCE FOR GROSS ACUTE INFARCT OR HEMORRHAGE. 2. LARGE ARACHNOID CYST ANTERIOR TO THE RIGHT FRONTAL LOBE. ED physician has reviewed this report. - EKG 1045 Cardiac Rate: Other Rate - 60bpm afib EKG Rhythm: Atrial Fibrillation ST Segment: Normal Ectopy: None Summary of EKG Findings: EKG at 1045 shows atrial fibrillation at 60bpm with no ST elevations. ED physician has reviewed and interpreted this EKG. Dizzy Course/Dx - Course Assessment/Plan: Pt is an 78 y/o F presenting to the ED brought in by EMS for dizziness. Per EMS, she woke up around 0745 and was fine, laid down again, woke up about an hour later incredibly dizzy. EMS states she denies any recent falls , trauma, recent illness, headache, or hx of vertigo. She currently takes Xarelto. Pt endorses nausea and that moving her head worsens the dizziness. She denies any recent sinus or ear issues, blurred vision, chest pain, palpitations , SOB, weakness, or numbness. EKG: Afib with rate control. CXR impression: chest x-ray impression: Mild opacification of the lung base atelectasis versus infiltrate. Head CT impression: no evidence for gross acute infarct or hemorrhage. Large arachnoid cyst anterior to the right frontal lobe. In the Ed course patient was given NS, Labetalol for her uncontrolled HTN, Zofran for her nausea and Meclizine for her dizziness. Blood work without any significant abnormality except for glucose of 114, troponin 0.07 and BNP 132. The patient continues to have dizziness therefore discussed the case with Dr. Palmer from neurology and he recommends an MRI of the brain. The patient was given Valium for the dizziness. I discuss my physical exam and test results with Dr. Garcia from the hospitalist services and he agrees to admit the patient to his services. The patient is hemodynamically stable alert and oriented x 3. - Diagnoses Differential Diagnosis/HQI/PQRI: CVA, Dysrhythmia, Transient Ischemic Attack, Vasovagal Reaction Provider Diagnoses: Dizziness, Uncontrolled hypertension, Elevated troponin - Provider Notifications Discussed Care Of Patient With: Subha Garcia Time Discussed With Above Provider: 12:53 Instructed by Provider To: Admit As Inpatient Discharge ED - Sign-Out/Discharge Documenting (check all that apply): Patient Departure - Discharge Plan Condition: Stable Disposition: ADMITTED TO [facility] - Billing Disposition and Condition Condition: STABLE Disposition: Admitted to [facility] - Attestation Statements Document Initiated by Scribe: Yes Documenting Scribe: Humera Abrams Provider For Whom Yuki is Documenting (Include Credential): Nelson Alberts MD. Scribe Attestation: Humera Montano, anastasiiaed for Nelson Alberts MD. on 05/20/19 at 2032. Scribe Documentation Reviewed: Yes Provider Attestation: The documentation as recorded by the scribe, Humera Abrams accurately reflects the service I personally performed and the decisions made by me, Nelson Alberts MD. Status of Yuki Document: Viewed Consult Consult: 1211 - I spoke with Dr. Mack about the pt who recommends getting an MRI.
[2019-05-20] MEDS ORDERED: Labetalol IV* 5 MG/ML 20 ML VIAL IV PUSH ONE (10:28)
[2019-05-20 10:50] LABS: ABS Basophils 0.1 10^3/ul (0-0.2); ABS Eosinophils 0.2 10^3/ul (0-0.6); ABS Lymphocytes 1.2 10^3/ul (1.0-4.8); ABS Monocytes 0.5 10^3/ul (0-0.8); ABS Neutrophils 4.6 10^3/ul (1.5-7.7); Eosinophil % 3.1 %; Hematocrit 44 % (35-47); Hemoglobin 14.8 g/dL (12.0-16.0); Mean Corpuscular HGB Conc 34 g/dL (31-36); Mean Corpuscular Hemoglobin 31 pg (27-31); Mean Corpuscular Volume 92 fL (80-97); Mean Platelet Volume 8.1 fL (7.4-10.4); Platelet Count 295 10^3/uL (150-450); Red Blood Count 4.72 10^6 /uL (3.70-4.87); Red Cell Distribution Width 14 % (10-15); White Blood Count 6.5 10^3/uL (3.5-10.8)
[2019-05-20 11:16] LABS: ALT 15 U/L (7-52); AST 19 U/L (13-39); Albumin 4.3 g/dL (3.2-5.2); Albumin/Globulin Ratio 1.6 (1-3); Alkaline Phosphatase 61 U/L (34-104); Anion Gap 6 mmol/L (2-11); BUN/Creatinine Ratio 28.6 (8-20); Blood Urea Nitrogen 24 mg/dL (6-24); C Reactive Protein 1.03 mg/L (<8.01); CO2 Carbon Dioxide 29 mmol/L (22-32); Calcium 9.6 mg/dL (8.6-10.3); Chloride 103 mmol/L (101-111); Creatine Kinase 36 U/L (10-223); EGFR African American 78.9 (>60); EGFR Non-African American 65.2 (>60); Globulin 2.7 g/dL (2-4); Glucose 114 mg/dL (70-100); Magnesium 2.1 mg/dL (1.9-2.7); Potassium 4.5 mmol/L (3.5-5.0); Sodium 138 mmol/L (135-145)
[2019-05-20] MEDS ORDERED: Diazepam TAB(*) 5 MG PO ONE (11:19)
[2019-05-20 11:26] LABS: Troponin I 0.07 ng/mL (<0.03)
[2019-05-20 11:55] LABS: TSH (Thyroid Stimulating Horm) 3.49 mcIU/mL (0.34-5.60)
[2019-05-20 11:56] LABS: Alcohol < 10 mg/dL (<10)
[2019-05-20] MEDS ORDERED: Aspirin 81 mg CHEW TAB* 81 MG TAB.CHEW PO ONE (12:32)
[2019-05-20] MEDS ORDERED: Ondansetron INJ* 2 MG/ML VIAL IV PRN (13:33)
[2019-05-20] MEDS ORDERED: Famotidine TAB* 20 MG PO PRN (13:34)
[2019-05-20 13:53] LABS: Cholesterol 148 mg/dL; LDL Cholesterol 78 mg/dL; Triglycerides 113 mg/dL
[2019-05-20 14:14] LABS: Urine Appearance Clear; Urine Bilirubin Negative (Negative); Urine Blood Negative (Negative); Urine Color Yellow; Urine Glucose Negative (Negative); Urine Ketones Negative (Negative); Urine Nitrite Negative (Negative); Urine Protein Negative (Negative); Urine Specific Gravity 1.012 (1.010-1.030); Urine Urobilinogen Negative (Negative)
--- NOTE | 2019-05-20 15:13 | HP ---
CC: Jennifer Boo NP * HISTORY AND PHYSICAL: DATE OF ADMISSION: 05/20/19 PRIMARY CARE PROVIDER: Jennifer Boo NP. CHIEF COMPLAINT: Dizzy. HISTORY OF PRESENT ILLNESS: Ms. Ball is an 78-year-old female who states that she woke up at approximately 7:30 a.m. to take her dogs outside. She does not typically get up until 8:30 or 9. Therefore, when she got back inside, she went back to bed. At approximately 8:20, she tried to get out of bed and noted that she was unable to. She tried a couple more times, but felt severe dizziness and was therefore unable to get out of the bed. She text messaged her daughter that she was very dizzy and could not get up. Her daughter presented and found her at home. At that point, other than the dizziness that the patient was complaining of, she was neurologically intact per her daughter. The patient denies any associated headache, changes in vision, or diplopia. There was no droopy face or slurred speech. There was no focal weakness on either the arms or legs. The patient notes that every time she moves her head, the room seemed as if it is swaying. She received meclizine and Valium in the emergency room and despite that she continued to have severe dizziness with changing position of her head. She is, however, able to lie flat in bed with her eyes open without feeling dizzy. She denies any recent cold symptoms or fevers. She does note that her great grandson was recently diagnosed with RSV this past Monday. The Monday prior to that he did visit. PAST MEDICAL HISTORY: 1. Hypertension. 2. Hyperlipidemia. 3. Atrial fibrillation. 4. Prediabetes. 5. GERD. 6. Obesity. 7. Depression. PAST SURGICAL HISTORY: 1. Tonsillectomy. 2. Cholecystectomy. 3. Right total hip arthroplasty. 4. Left total hip arthroplasty. 5. Right total knee arthroplasty. 6. Bilateral cataract extractions. 7. Tubal ligation. MEDICATIONS: 1. Simvastatin. 2. [place] 3-6-9 complex 1 cap p.o. daily. 3. Famotidine 20 mg p.o. b.i.d. p.r.n. GERD. 4. Ascorbic acid 1000 mg p.o. daily. 5. Multivitamin 1 tab p.o. daily. 6. Aspirin 81 mg p.o. daily. 7. Wellbutrin SR 150 mg p.o. q.h.s. 8. Xarelto 20 mg p.o. daily. 9. Mycolog cream apply twice daily as needed for rash. 10. Losartan/hydrochlorothiazide 1 tab p.o. daily. 11. Debrox 5 to 10 drops both ears daily p.r.n. ear wax. FAMILY HISTORY: Mom at the age of 86. She had heart failure. Dad at the age of 56. He was an alcoholic. He of an [place]. SOCIAL HISTORY: The patient is a former smoker. She quit in 1997. She drinks alcohol rarely. 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 She is . She had 6 children, one of which is by suicide. The patient's daughter Tawanna is her healthcare proxy. REVIEW OF SYSTEMS: Complete 11-system review of systems is obtained. Pertinent positives and negatives are as per HPI, and in addition, the patient does state she had some mild nausea while in the ambulance, though no further nausea. PHYSICAL EXAMINATION GENERAL: The patient is a well-developed, elderly female, who appears younger than her stated age, lying flat in bed, in no acute distress. VITAL SIGNS: Blood pressure 158/64, pulse 68, respirations 16, temperature 97.7 , O2 sat 95% on room air. HEENT: There is evidence of prior cataract extraction. Pupils are round. Extraocular muscles are intact. Question nystagmus while looking to the left. Oropharynx is clear and moist. There is no submandibular, cervical, or supraclavicular adenopathy. PULMONARY: Lungs are clear to auscultation anteriorly. CARDIAC: Normal S1 and S2. Heart rate is irregularly irregular, but controlled. There is trace left lower extremity pitting edema. There is evidence of chronic venous stasis changes to the bilateral lower extremities. ABDOMEN: Bowel sounds present. Abdomen is soft, nontender, nondistended. MUSCULOSKELETAL: The patient moves all 4 extremities symmetrically. SKIN: Visible areas of skin are warm, dry, and without rash. NEUROLOGIC: Cranial nerves II through XII are grossly intact. Sensation is intact to light touch throughout. Strength is 5/5 and symmetric to both upper and lower extremities bilaterally. PSYCH: The patient is alert. She is oriented x3. Affect appears appropriate. LABORATORY DATA: WBC 6.5, hemoglobin 14.8, hematocrit 44, platelets 295. Sodium 138, potassium 4.5, chloride 103, CO2 of 29, BUN 24, creatinine 0.84, glucose 114, lactic acid 1.1, calcium 9.6, magnesium 2.1, bilirubin 0.6, AST 19 , ALT 15, alk phos 61, CPK 36, troponin 0.07, CRP 1.03, BNP 132, albumin 4.3, TSH 3.49. Serum alcohol less than 10. EKG revealed atrial fibrillation with controlled rate. There are no acute ST-T wave abnormalities. Chest x-ray: Mild airspace opacification of the right lung base, which could represent atelectasis versus infiltrate. CT Brain: No evidence for gross acute infarct or hemorrhage. There is a large arachnoid cyst anterior to the right frontal lobe. ASSESSMENT AND PLAN: Ms. Ball is an 78-year-old female who was in her usual state of health until approximately 8:20 a.m. on the morning of admission when she suddenly developed dizziness, which she described as room swaying with any movement of her head. 1. Dizziness. The most likely diagnosis is benign positional vertigo. The patient does not have any dizziness while at rest lying in bed even with her eyes open. She has already received meclizine and Valium without any improvement. I will order continued p.r.n. meclizine. Neurology consultation has been requested by Dr. Alberts. It was recommended to obtain an MRI of the brain. This has been ordered. 2. Elevated troponin. The patient has a mildly elevated troponin of 0.07. The patient has had no complaints of chest pain whatsoever. We will get a followup troponin now as well as followup EKG. For now, I am not going to pursue any further workup. I am suspicious that the elevated troponin may be false positive. If the troponin remains elevated, I will obtain a transthoracic echocardiogram. 3. Hypertension. The patient's blood pressure was quite elevated upon presentation to the emergency room. She did not have her morning meds. She did receive labetalol 10 mg IV x1 in the ER with some improvement in her blood pressure. I will add back her home losartan/hydrochlorothiazide. 4. Hyperlipidemia. Continue simvastatin 40 mg p.o. daily. Lipid profile has been added to the labs obtained in the ER. 5. Atrial fibrillation. Heart rate is controlled. She is not on any rate reducing agents. She will continue on her Xarelto 20 mg daily. 6. Depression. Continue bupropion SR. 7. DVT prophylaxis: According to the Adult Thrombosis Prophylaxis Risk Factor Assessment Guide, the patient has a total risk factor score of 4, making her high risk. She is already on Xarelto and this will act as a DVT prophylaxis. 8. Code status is full. TIME SPENT: Sixty five minutes was spent admitting this patient. [id number]/[facility] #: [id number] TOMI
[2019-05-20 15:24] LABS: Troponin I 0.07 ng/mL (<0.03)
[2019-05-20] MEDS: Hydrochlorothiazide TAB* 25 MG PO SCH (15:43)
[2019-05-20] MEDS: Losartan TAB* 25 MG PO SCH (15:43)
[2019-05-20] MEDS: buPROPion SR TAB.SR* 150 MG PO SCH (18:27)
[2019-05-20] MEDS: Meclizine TAB* 12.5 MG PO PRN (20:59)
[2019-05-21] MEDS: Losartan TAB* 25 MG PO SCH (08:51)
[2019-05-21] MEDS: Aspirin EC TAB* 81 MG TAB.EC PO SCH (08:51)
[2019-05-21] MEDS: Rivaroxaban TAB(*) 20 MG TAB PO SCH (08:52)
[2019-05-21] MEDS: Hydrochlorothiazide TAB* 25 MG PO SCH (08:52)
[2019-05-21] MEDS: Vitamin THERAPEUTIC TAB PO SCH (08:52)
[2019-05-21] MEDS: Ascorbic Acid TAB* 500 MG PO SCH (08:52)
[2019-05-21] MEDS: Atorvastatin* 20 MG TAB PO SCH (08:52)
[2019-05-21] MEDS: Meclizine TAB* 12.5 MG PO PRN (08:52)
[2019-05-21] MEDS ORDERED: Iodixanol* (CONTRAST) 320 MG/ML 100 ML SDV IV ONE (12:02)
[2019-05-21] MEDS: Meclizine TAB* 12.5 MG PO SCH ×3 (12:04→23:07)
[2019-05-21] MEDS: Ondansetron ODT TAB* 4 MG SL SCH ×3 (12:04→23:07)
[2019-05-21] MEDS: buPROPion SR TAB.SR* 150 MG PO SCH (17:51)
--- NOTE | 2019-05-21 17:56 | PN ---
Subjective Date of Service: 05/21/19 Interval History: Patient seen today with daughter at bedside, no acute events. still complaining of increase dizziness. unable to sit up due to dizziness. no vomiting. bilateral otoscopic exam reveal minimal fluid behind right tympanic membrane. clear fluid Past Medical History: Unchanged from Admission Objective Active Medications: Acetaminophen (Tylenol Tab*) 650 mg PO Q4H PRN PRN Reason: PAIN Ascorbic Acid (Vitamin C Tab*) 1,000 mg PO DAILY [facility] Last Admin: 05/21/19 08:52 Dose: 1,000 mg Aspirin (Aspirin Ec Tab*) 81 mg PO DAILY [facility] Last Admin: 05/21/19 08:51 Dose: 81 mg Atorvastatin Calcium (Lipitor*) 20 mg PO DAILY [facility] Last Admin: 05/21/19 08:52 Dose: 20 mg Bupropion HCl (Wellbutrin Sr Tab*) 150 mg PO QPM [facility] Last Admin: 05/20/19 18:27 Dose: 150 mg Famotidine (Pepcid Tab*) 20 mg PO BID PRN PRN Reason: HEARTBURN Hydrochlorothiazide (Hydrodiuril Tab*) 25 mg PO DAILY [facility] Last Admin: 05/21/19 08:52 Dose: 25 mg Losartan Potassium (Cozaar Tab*) 100 mg PO DAILY [facility] Last Admin: 05/21/19 08:51 Dose: 100 mg Meclizine HCl (Antivert Tab*) 25 mg PO Q6H [facility] Stop: 05/22/19 11:59 Last Admin: 05/21/19 12:04 Dose: 25 mg Multivitamins (Theragran Tab*) 1 tab PO DAILY [facility] Last Admin: 05/21/19 08:52 Dose: 1 tab Ondansetron HCl (Zofran Odt Tab*) 4 mg SL Q6H [facility] Stop: 05/22/19 11:59 Last Admin: 05/21/19 12:04 Dose: 4 mg Rivaroxaban (Xarelto(*)) 20 mg PO DAILY [facility] Last Admin: 05/21/19 08:52 Dose: 20 mg Vital Signs - 8 hr 05/21/19 05/21/19 11:15 15:15 Temperature 98.1 F 97.3 F Pulse Rate 62 69 Respiratory 14 20 Rate Blood Pressure 131/54 144/51 (mmHg) O2 Sat by Pulse 95 95 Oximetry Oxygen Devices in Use Now: None Appearance: awake, alert, no distress. no fever or chills Eyes: No Scleral Icterus, - - nustagmus to right horizental. right tympanic fluid Ears/Nose/Mouth/Throat: NL Teeth, Lips, Gums, Mucous Membranes Moist Neck: NL Appearance and Movements; NL JVP, Trachea Midline Respiratory: Symmetrical Chest Expansion and Respiratory Effort, Clear to Auscultation Cardiovascular: NL Sounds; No Murmurs; No JVD, No Edema Abdominal: NL Sounds; No Tenderness; No Distention Extremities: No Edema Neurological: Alert and Oriented x 3, NL Muscle Strength and Tone Result Diagrams: 05/20/19 10:40 05/20/19 10:40 Assess/Plan/Problems-Billing Assessment: 78 y/o female admitted with dizziness consistent with BPPV, CT and MRI head negative,. - Patient Problems (1) BPPV (benign paroxysmal positional vertigo) Current Visit: Yes Status: Acute Code(s): H81.10 - BENIGN PAROXYSMAL VERTIGO , UNSPECIFIED EAR SNOMED Code(s): 083917172 Comment: - Will change meclizine to ATC not PRN - zofran prn - Will check CTA head and neck - PT consult for Krishna maneuver (2) Afib Current Visit: No Status: Chronic Code(s): I48.91 - UNSPECIFIED ATRIAL FIBRILLATION SNOMED Code(s): 28410703 Comment: - On rivaroxaban - Rate controlled (3) GERD (gastroesophageal reflux disease) Current Visit: No Status: Chronic Code(s): K21.9 - GASTRO-ESOPHAGEAL REFLUX DISEASE WITHOUT ESOPHAGITIS SNOMED Code(s): 057152696 Comment: Continue home famotidine 20 mg PRN bid (4) HLD (hyperlipidemia) Current Visit: No Status: Chronic Code(s): E78.5 - HYPERLIPIDEMIA, UNSPECIFIED SNOMED Code(s): 46148718 Comment: Continue statin 20 mg HS (5) HTN (hypertension) Current Visit: No Status: Chronic Code(s): I10 - ESSENTIAL (PRIMARY) HYPERTENSION SNOMED Code(s): 71840355 Comment: Normotensive Continue losartan and HCTZ (6) DVT prophylaxis Current Visit: No Status: Acute Code(s): [id number] - SNOMED Code(s): 711197346 Comment: - On Xarelto
[2019-05-22] MEDS: Meclizine TAB* 12.5 MG PO SCH ×4 (06:06→23:06)
[2019-05-22] MEDS: Ondansetron ODT TAB* 4 MG SL SCH ×4 (06:06→23:04)
[2019-05-22] MEDS: Losartan TAB* 25 MG PO SCH (08:20)
[2019-05-22] MEDS: Vitamin THERAPEUTIC TAB PO SCH (08:20)
[2019-05-22] MEDS: Acetaminophen TAB* 325 MG PO PRN (08:20)
[2019-05-22] MEDS: Rivaroxaban TAB(*) 20 MG TAB PO SCH (08:21)
[2019-05-22] MEDS: Aspirin EC TAB* 81 MG TAB.EC PO SCH (08:21)
[2019-05-22] MEDS: Atorvastatin* 20 MG TAB PO SCH (08:21)
[2019-05-22] MEDS: Hydrochlorothiazide TAB* 25 MG PO SCH (08:21)
[2019-05-22] MEDS: Ascorbic Acid TAB* 500 MG PO SCH (08:21)
[2019-05-22 10:22] LABS: ABS Basophils 0.1 10^3/ul (0-0.2); ABS Eosinophils 0.3 10^3/ul (0-0.6); ABS Lymphocytes 1.5 10^3/ul (1.0-4.8); ABS Monocytes 0.9 10^3/ul (0-0.8); ABS Neutrophils 6.9 10^3/ul (1.5-7.7); Eosinophil % 2.6 %; Hematocrit 43 % (35-47); Hemoglobin 14.7 g/dL (12.0-16.0); Lymphocyte % 15.9 %; Mean Corpuscular HGB Conc 34 g/dL (31-36); Mean Corpuscular Hemoglobin 32 pg (27-31); Mean Corpuscular Volume 93 fL (80-97); Platelet Count 315 10^3/uL (150-450); Red Cell Distribution Width 14 % (10-15); White Blood Count 9.6 10^3/uL (3.5-10.8)
[2019-05-22 10:42] LABS: BUN/Creatinine Ratio 15.4 (8-20); Calcium 9.5 mg/dL (8.6-10.3); EGFR African American 61.7 (>60); Magnesium 1.9 mg/dL (1.9-2.7); Phosphorus 3.6 mg/dL (2.5-5.0); Potassium 4.1 mmol/L (3.5-5.0)
--- NOTE | 2019-05-22 15:02 | PN ---
Subjective Date of Service: 05/22/19 Interval History: patient seen today, she still having difficulty standing up this morning. She is participating with PT but remains symptomatic with whenever trying to do the Krishna maneuver, however she is unable to tolerate the procedue due to dizziness with sitting up. I did place her on one dose of prednisone one dose today 60 mg recieved it at 10:20 am and re-evaluated her at 3 pm and she states she is feeling better and was able to sit up with minimal symptoms. Will try to dose one dose tomorrow 60 mg and will continue with meclizine ATC. will keep her one more day to see if she is able to tolerate the Krishna maneuver tomorrow. Unable to ambulate to bathroom due to dizziness. She remains on fall precautions Past Medical History: Unchanged from Admission Objective Active Medications: Acetaminophen (Tylenol Tab*) 650 mg PO Q4H PRN PRN Reason: PAIN Last Admin: 05/22/19 08:20 Dose: 650 mg Ascorbic Acid (Vitamin C Tab*) 1,000 mg PO DAILY [facility] Last Admin: 05/22/19 08:21 Dose: 1,000 mg Aspirin (Aspirin Ec Tab*) 81 mg PO DAILY [facility] Last Admin: 05/22/19 08:21 Dose: 81 mg Atorvastatin Calcium (Lipitor*) 20 mg PO DAILY [facility] Last Admin: 05/22/19 08:21 Dose: 20 mg Bupropion HCl (Wellbutrin Sr Tab*) 150 mg PO QPM [facility] Last Admin: 05/21/19 17:51 Dose: 150 mg Famotidine (Pepcid Tab*) 20 mg PO BID PRN PRN Reason: HEARTBURN Hydrochlorothiazide (Hydrodiuril Tab*) 25 mg PO DAILY [facility] Last Admin: 05/22/19 08:21 Dose: 25 mg Losartan Potassium (Cozaar Tab*) 100 mg PO DAILY [facility] Last Admin: 05/22/19 08:20 Dose: 100 mg Meclizine HCl (Antivert Tab*) 25 mg PO Q6H [facility] Stop: 05/23/19 11:59 Last Admin: 05/22/19 11:49 Dose: 25 mg Multivitamins (Theragran Tab*) 1 tab PO DAILY [facility] Last Admin: 05/22/19 08:20 Dose: 1 tab Ondansetron HCl (Zofran Odt Tab*) 4 mg SL Q6H [facility] Stop: 05/23/19 11:59 Last Admin: 05/22/19 11:49 Dose: 4 mg Rivaroxaban (Xarelto(*)) 20 mg PO DAILY [facility] Last Admin: 05/22/19 08:21 Dose: 20 mg Vital Signs - 8 hr 05/22/19 05/22/19 05/22/19 07:15 07:32 11:25 Temperature 98.0 F 97.8 F Pulse Rate 71 73 Respiratory 18 20 16 Rate Blood Pressure 138/40 121/62 (mmHg) O2 Sat by Pulse 96 96 Oximetry Oxygen Devices in Use Now: None Appearance: awake, alert. no distress. + nystagmus trigerred with left gaze Eyes: No Scleral Icterus, PERRLA Ears/Nose/Mouth/Throat: NL Teeth, Lips, Gums, Mucous Membranes Moist Neck: NL Appearance and Movements; NL JVP, Trachea Midline Respiratory: Symmetrical Chest Expansion and Respiratory Effort, Clear to Auscultation Cardiovascular: NL Sounds; No Murmurs; No JVD, RRR, No Edema Abdominal: NL Sounds; No Tenderness; No Distention Result Diagrams: 05/22/19 10:11 05/22/19 10:11 Assess/Plan/Problems-Billing Assessment: 78 y/o female admitted with dizziness consistent with BPPV, CT and MRI head negative,. - Patient Problems (1) BPPV (benign paroxysmal positional vertigo) Current Visit: Yes Status: Acute Code(s): H81.10 - BENIGN PAROXYSMAL VERTIGO , UNSPECIFIED EAR SNOMED Code(s): 800595277 Comment: - Continue meclizine to ATC not PRN - Continue zofran ATC - CTA head and neck negative for aneuyrysm or thrombosis. MRI brain no acute pathology - PT consult for Krishna maneuver - Added prednisone today and will give one dose tomorrow am before the PT session (2) Afib Current Visit: No Status: Chronic Code(s): I48.91 - UNSPECIFIED ATRIAL FIBRILLATION SNOMED Code(s): 36905989 Comment: - On rivaroxaban - Rate controlled (3) GERD (gastroesophageal reflux disease) Current Visit: No Status: Chronic Code(s): K21.9 - GASTRO-ESOPHAGEAL REFLUX DISEASE WITHOUT ESOPHAGITIS SNOMED Code(s): 584947546 Comment: Continue home famotidine 20 mg PRN bid (4) HLD (hyperlipidemia) Current Visit: No Status: Chronic Code(s): E78.5 - HYPERLIPIDEMIA, UNSPECIFIED SNOMED Code(s): 63941831 Comment: Continue statin 20 mg HS (5) HTN (hypertension) Current Visit: No Status: Chronic Code(s): I10 - ESSENTIAL (PRIMARY) HYPERTENSION SNOMED Code(s): 89182378 Comment: Normotensive Continue losartan and HCTZ (6) DVT prophylaxis Current Visit: No Status: Acute Code(s): CNN7629 - SNOMED Code(s): 359902922 Comment: - On Xarelto
[2019-05-22] MEDS: buPROPion SR TAB.SR* 150 MG PO SCH (17:17)
[2019-05-23] MEDS ORDERED: Calcium Carbonate CHEW TAB* 500 MG (TUMS) PO PRN (00:19)
[2019-05-23] MEDS: Acetaminophen TAB* 325 MG PO PRN (00:38)
[2019-05-23] MEDS: Meclizine TAB* 12.5 MG PO SCH (05:56)
[2019-05-23] MEDS: Ondansetron ODT TAB* 4 MG SL SCH (05:56)
[2019-05-23] MEDS: Aspirin EC TAB* 81 MG TAB.EC PO SCH (08:43)
[2019-05-23] MEDS: Atorvastatin* 20 MG TAB PO SCH (08:43)
[2019-05-23] MEDS: Losartan TAB* 25 MG PO SCH (08:44)
[2019-05-23] MEDS: Vitamin THERAPEUTIC TAB PO SCH (08:44)
[2019-05-23] MEDS: Hydrochlorothiazide TAB* 25 MG PO SCH (08:44)
[2019-05-23] MEDS: Rivaroxaban TAB(*) 20 MG TAB PO SCH (08:44)
[2019-05-23] MEDS: Ascorbic Acid TAB* 500 MG PO SCH (08:44)
[2019-05-23 09:36] LABS: Troponin I 0.07 ng/mL (<0.03)
--- NOTE | 2019-05-23 15:37 | PN ---
Subjective Date of Service: 05/23/19 Interval History: Seen today, she is out of bed to chair. She had one episode of sinus pause earlier today 3.2 sec. known history of afib with chronic bradycardia. she is not on any negative chronotropic drugs. She feels less dizzy. PT note appreciated. She does benefit from Physical therapy. Medically stable for discharge pending discharge disposition for outpatient rehab and aid at home. Possible discharge in am as daughter states she will have more help to get her in the house Past Medical History: Unchanged from Admission Objective Active Medications: Acetaminophen (Tylenol Tab*) 650 mg PO Q4H PRN PRN Reason: PAIN Last Admin: 05/23/19 00:38 Dose: 650 mg Ascorbic Acid (Vitamin C Tab*) 1,000 mg PO DAILY [facility] Last Admin: 05/23/19 08:44 Dose: 1,000 mg Aspirin (Aspirin Ec Tab*) 81 mg PO DAILY [facility] Last Admin: 05/23/19 08:43 Dose: 81 mg Atorvastatin Calcium (Lipitor*) 20 mg PO DAILY [facility] Last Admin: 05/23/19 08:43 Dose: 20 mg Bupropion HCl (Wellbutrin Sr Tab*) 150 mg PO QPM [facility] Last Admin: 05/22/19 17:17 Dose: 150 mg Calcium Carbonate (Tums*) 500 mg PO TID PRN PRN Reason: INDIGESTION Last Admin: 05/23/19 00:38 Dose: 500 mg Famotidine (Pepcid Tab*) 20 mg PO BID PRN PRN Reason: HEARTBURN Last Admin: 05/22/19 23:08 Dose: 20 mg Hydrochlorothiazide (Hydrodiuril Tab*) 25 mg PO DAILY [facility] Last Admin: 05/23/19 08:44 Dose: 25 mg Losartan Potassium (Cozaar Tab*) 100 mg PO DAILY [facility] Last Admin: 05/23/19 08:44 Dose: 100 mg Multivitamins (Theragran Tab*) 1 tab PO DAILY [facility] Last Admin: 05/23/19 08:44 Dose: 1 tab Prednisone (Deltasone 20 Mg Tab) 60 mg PO DAILY [facility] Last Admin: 05/23/19 08:44 Dose: 60 mg Rivaroxaban (Xarelto(*)) 20 mg PO DAILY [facility] Last Admin: 05/23/19 08:44 Dose: 20 mg Vital Signs - 8 hr 05/23/19 05/23/19 07:36 11:15 Temperature 97.7 F Pulse Rate 54 Respiratory 18 16 Rate Blood Pressure 136/49 (mmHg) O2 Sat by Pulse 97 Oximetry Oxygen Devices in Use Now: None Appearance: awake, alert. no fever or chills Eyes: No Scleral Icterus, PERRLA, - - EOMI Ears/Nose/Mouth/Throat: NL Teeth, Lips, Gums, Mucous Membranes Moist Neck: NL Appearance and Movements; NL JVP, Trachea Midline Respiratory: Symmetrical Chest Expansion and Respiratory Effort, Clear to Auscultation Cardiovascular: NL Sounds; No Murmurs; No JVD, RRR, No Edema Abdominal: NL Sounds; No Tenderness; No Distention Extremities: No Edema Skin: No Rash or Ulcers Neurological: Alert and Oriented x 3, NL Muscle Strength and Tone Result Diagrams: 05/22/19 10:11 05/22/19 10:11 Assess/Plan/Problems-Billing Assessment: 78 y/o female admitted with dizziness consistent with BPPV, CT and MRI head negative,. - Patient Problems (1) BPPV (benign paroxysmal positional vertigo) Current Visit: Yes Status: Acute Code(s): H81.10 - BENIGN PAROXYSMAL VERTIGO , UNSPECIFIED EAR SNOMED Code(s): 211154248 Comment: - Continue meclizine to ATC not PRN - discontinue zofran - CTA head and neck negative for aneuyrysm or thrombosis. MRI brain no acute pathology - PT consult for Krishna maneuver. Will benefit from outpatient PT - Added prednisone which seems to have helped. (2) Afib Current Visit: No Status: Chronic Code(s): I48.91 - UNSPECIFIED ATRIAL FIBRILLATION SNOMED Code(s): 29884900 Comment: - On rivaroxaban - Rate controlled (3) GERD (gastroesophageal reflux disease) Current Visit: No Status: Chronic Code(s): K21.9 - GASTRO-ESOPHAGEAL REFLUX DISEASE WITHOUT ESOPHAGITIS SNOMED Code(s): 337424088 Comment: Continue home famotidine 20 mg PRN bid (4) HLD (hyperlipidemia) Current Visit: No Status: Chronic Code(s): E78.5 - HYPERLIPIDEMIA, UNSPECIFIED SNOMED Code(s): 72699773 Comment: Continue statin 20 mg HS (5) HTN (hypertension) Current Visit: No Status: Chronic Code(s): I10 - ESSENTIAL (PRIMARY) HYPERTENSION SNOMED Code(s): 76987209 Comment: Normotensive Continue losartan and HCTZ (6) DVT prophylaxis Current Visit: No Status: Acute Code(s): [id number] - SNOMED Code(s): 245256483 Comment: - On Xarelto
[2019-05-23] MEDS: buPROPion SR TAB.SR* 150 MG PO SCH (17:37)
[2019-05-24] MEDS: Acetaminophen TAB* 325 MG PO PRN ×2 (00:36→07:52)
[2019-05-24] MEDS: Vitamin THERAPEUTIC TAB PO SCH (07:51)
[2019-05-24] MEDS: Losartan TAB* 25 MG PO SCH (07:51)
[2019-05-24] MEDS: Hydrochlorothiazide TAB* 25 MG PO SCH (07:51)
[2019-05-24] MEDS: Atorvastatin* 20 MG TAB PO SCH (07:51)
[2019-05-24] MEDS: Ascorbic Acid TAB* 500 MG PO SCH (07:51)
[2019-05-24] MEDS: Aspirin EC TAB* 81 MG TAB.EC PO SCH (07:51)
[2019-05-24] MEDS: Rivaroxaban TAB(*) 20 MG TAB PO SCH (07:52)
[2019-05-24 11:50] VITALS: BP 140/58
--- NOTE | 2019-05-24 20:09 | DS ---
CC: Jennifer Boo NP DISCHARGE SUMMARY: DATE OF ADMISSION: 05/22/19 DATE OF DISCHARGE: 05/24/19 FINAL DISCHARGE DIAGNOSES: 1. Benign paroxysmal positional vertigo. 2. History of chronic atrial fibrillation with intermittent bradycardia. 3. Hypertension. 4. Hyperlipidemia. 5. Obesity. 6. Gastroesophageal reflux disease. 7. Depression. HOSPITAL COURSE: The patient presented to [facility] on 05/22/19 for dizziness associated with head movement that started acutely after she got up that day quickly trying to take her dogs outside and started feeling increased dizziness, difficulty ambulating. Text messaged her daughter and at that time she was brought in to the ER without any other neurological deficit other than the dizziness. In the emergency room, she did receive some meclizine and Valium without significant improvement. Therefore, she was admitted to be further evaluated. The patient had significant and severe dizziness to the point she could not even get out of bed or move her head upward. She had imaging that included brain CT on presentation in the emergency room, which did not show any acute infarct or hemorrhage. She does have arachnoid cyst that was followed with a brain MRI, which did not reveal any acute intracranial abnormality. She does have arachnoid cyst. No infarcts. She had CTA head and neck, which did not show any anomaly in her vertebral or aneurysm. She also was evaluated by Physical Therapy with Krishna maneuver. She had difficulty participating on the first day, but I implemented afterwards around- the-clock meclizine, Zofran, and prednisone and finally on day #3, she was able to participate and this had improved after that on a daily basis and today, she is sitting out of bed ambulating using her iPhone. Denies any dizziness or shortness of breath. Therefore, she is deemed stable for discharge without continued ongoing outpatient physical therapy. PHYSICAL EXAM: Vital Signs: Temperature 97, pulse 53, respiratory rate 16, sating 97%, blood pressure 129/47. General: She is awake, alert, oriented, pleasant. Head and Neck: Normocephalic, atraumatic, supple neck. Lungs: Clear to auscultation bilateral. Cardiovascular: S1, S2. Regular rate and rhythm. Abdomen: Positive bowel sounds. Soft, nontender, nondistended. Extremities: No pedal edema. DIAGNOSTIC STUDIES/LAB DATA: CBC unremarkable. Chemistry unremarkable. Troponin flat 0.07 x3. EKG: AFib. She had 1 incident of 3.2 second sinus pause, but was asymptomatic. Toxicology: Alcohol less than 10. Urinalysis unremarkable. CT head shows no acute infarct. She has a large arachnoid cyst in the frontal lobe. MRI of the brain, chronic ischemic vessel disease otherwise unremarkable other than the arachnoid cyst. CTA head and neck unremarkable. Stable frontal arachnoid cyst. DISCHARGE MEDICATIONS: Continue home meds as follow: 1. Aspirin 81 daily. 2. Vitamin C 1000 daily. 3. Wellbutrin 150 daily. 4. Famotidine 20 b.i.d. 5. Fish oil. 6. Lasix 20 daily. 7. Losartan/hydrochlorothiazide 1 tab daily. 8. Multivitamin daily. 9. Xarelto 20 daily. 10. Zocor 40 daily. 11. Meclizine 25 q.6 p.r.n. 12. Prednisone 40 for 3 more days, 20 for 3 days and stop. DISCHARGE INSTRUCTIONS: Follow up with Physical Therapy as an outpatient. Take all medication as prescribed. Please note that the MRI finding of arachnoid cyst has been related to the patient herself. Recommendation is observation, however, leave it to the discretion of her primary whether or not they would like to have a second opinion. At this time, I do not see any surgical intervention or any benefit from any further inpatient workup. DISCHARGE CONDITION: Stable DISCHARGE DISPOSITION: Home [id number]/[facility] #: [id number] TOMI
== END 2019-05-24 13:30 | disposition home or self-care (01) | DRG 149 ==
LOC: ED 10:16 → MEDTELE 13:33 → OBSVTOIN 05-21 11:00
PROVIDERS: ADMIT Hospitalist; ATTEND Internal Medicine
DX: H81.10 Benign paroxysmal vertigo, unspecified ear (principal); I48.20 Chronic atrial fibrillation, unspecified; I49.5 Sick sinus syndrome; E66.9 Obesity, unspecified; I10 Essential (primary) hypertension; E78.5 Hyperlipidemia, unspecified; K21.9 Gastro-esophageal reflux disease without esophagitis; F32.9 Major depressive disorder, single episode, unspecified; H55.00 Unspecified nystagmus; R74.8 Abnormal levels of other serum enzymes; G93.0 Cerebral cysts; R73.03 Prediabetes; Z96.643 Presence of artificial hip joint, bilateral; Z96.651 Presence of right artificial knee joint; Z68.34 Body mass index [BMI] 34.0-34.9, adult; Z79.01 Long term (current) use of anticoagulants; Z79.82 Long term (current) use of aspirin; Z79.899 Other long term (current) drug therapy; Z82.49 Family history of ischemic heart disease and other diseases of the circulatory system; Z81.1 Family history of alcohol abuse and dependence; Z87.891 Personal history of nicotine dependence
CPT/HCPCS: 36415; 70450; 70496; 70498; 70551; 71045; 80048; 80053; 80061; 80320; 81003; 82550; 83036; 83605; 83735; 83880; 84100; 84443; 84484; 85025; 86140; 93005; 96374; 99284; A9270-GY; G0378; G0480; J7512; Q9967

== ENCOUNTER 2019-07-09 11:31 | Emergency (ER) | payer MEDICARE, BC ==
--- OUTSIDE RECORDS SUMMARY | 2019-07-09 11:37 | XMS REPORT | Continuity of Care Document ---
:1940 External Reference #:[id number] Author Name Jennifer Boo N.Rubén (transmitted by agent of provider Dolores Leone) Address [address] [place] [address], [place] [address] Care Team Providers Name Role Phone Arlen Del Cid MD - Internal Medicine Care Team Information Cloth Edge Singer Saima Luna MD - Internal Medicine Care Team Information Cloth Edge Singer Problems Active Problems Provider Date Atrial fibrillation Berta Smith M.D. Onset: 10/02/2013 Essential hypertension Jennifer Boo N.PTunde Onset: 01/28/2015 Pure hypercholesterolemia Arlen Del Cid M.D., FACP Onset: 07/13/2010 Knee joint effusion Idalia Atwood M.D. Onset: 11/13/2015 Localized, primary osteoarthritis Idalia Atwood M.D. Onset: 11/13/2015 Arthroplasty of knee Idalia Atwood M.D. Onset: 12/16/2015 Localized, primary osteoarthritis of the Idalia Atwood M.D. Onset: 10/17/2016 pelvic region and thigh Prosthetic arthroplasty of the hip Idalia Atwood M.D. Onset: 12/05/2016 Edema Idalia Atwood M.D. Onset: 12/05/2016 Open wound of knee and/or leg and/or ankle Idalia Atwood M.D. Onset: 2016 Social History Type Date Description Comments Sex Unknown Tobacco Use Start: Unknown Former Cigarette Smoker End: Unknown 1 Pack Daily Cigarette Use Pack Years - 38 Smoking Status Reviewed: 06/03/19 Former Cigarette Smoker 1 Pack Daily ETOH Use Drinks Alcoholic Wine Beverages Occasionally Tobacco Use Start: Unknown Patient is a former Quit 1997 End: Unknown smoker Recreational Drug Use Denies Drug Use Exercise Type/Frequency Does not exercise Active doing housework Allergies, Adverse Reactions, Alerts Active Allergies Reaction Severity Comments Date Codeine anxiety Moderate 05/12/2010 Medications Active Medications SIG Qnty Indications Ordering Date Provider Debrox 5 - 10 drops per 15ml Jennifer Ema, 09/24/2018 6.5% Solution ear one daily N.P. Furosemide take 1 tablet in 30tabs R60.0 Jennifer Boo, 12/20/2016 20mg Tablets the morning N.P. Leg Compression Use this once a 1units R60.0 Jennifer Boo, 07/06/2016 Machine day in the evening N.P. Losartan 1 by mouth every 90tabs I10 Jennifer Boo, 07/06/2016 Potassium/Hydrochloro day N.P. thiazide 100-25mg Tablets Medic Alert Bracelet Use as needed for 1units I10 Jennifer Ema, 2015 Or Necklace emergencies N.P. Compression Stockings wear during day, 1units R60.0 Idalia Rai, 2015 20/30 off at night ed Suarez Misc ble edema Nystatin-Triamcinolon apply twice a day 60units R21 Jennifer Boo, 2014 e as needed rash N.P. 566417-0.1Unit/GM-% Cream Bupropion Take 1 Tablet By 90tabs Jennifer Boo, 12/10/2013 Hydrochloride ER (SR) Mouth Every N.P. Evening 150mg Tablets ER 12HR Xarelto take 1 tablet by 90tabs I48.0 Jennifer Boo, 09/12/2013 20mg Tablets mouth once daily N.P. Aspirin 1 tablet daily Arlen Del Cid, 01/12/[address] Suarez, FACP Multivitamins 1 daily 90caps Unknown Capsules Vitamin C 1 by mouth every Unknown 1000mg day Tablets [place] 3-6-9 Complex 1 by mouth every Unknown day Capsules Famotidine take 1 tablet by 180tabs Jennifer Boo, 20mg Tablets mouth twice a day N.P. if needed Simvastatin take 1 tablet by 90tabs Jennifer Varn, 40mg mouth once daily N.P. Tablets Medications Administered in Office Medication SIG Qnty Indications Ordering Provider Date Inj, Regadenoson, 0.1 MG Jarrod Paul M.D. 11/20/2015 Injection Technetium TC 99M Tetrofosmin, Jarrod Paul M.D. 11/20/2015 Per Unit Dose Up To 40 Millicuries Injection Immunizations CPT Code Status Date Vaccine Lot # [id number] Given 02/13/2019 Influenza Virus Vaccine, Quadrivalent, Split, Preservative Free [id number] Given 02/28/2018 Influenza Virus Vaccine, Quadrivalent, Split, Preservative Free 86622 Given 03/16/2017 Influenza Virus Vaccine, Quadrivalent, Split, Preservative Free 19361 Given 01/28/2015 Influenza Virus Vaccine, Quadrivalent, Split, [id number] Preservative Free 24848 Given 01/28/2015 Pneumococcal Conjugate Vaccine 13 Valent For [id number] Intramuscular Use Q2037 Given 06/11/2013 Fluvirin Im 3Yrs And Older [id number] Q2037 Given 03/05/2012 Fluvirin Im 3Yrs And Older [id number] 96215 Given 12/15/2011 Tdap - Tetanus/Diptheria/Acellular Pertussis [id number] Q2035 Given 04/12/2011 Afluria Vaccine [id number] Q2038 Given 05/12/2010 Fluzone Vaccine Vital Signs Date Vital Result Comment 06/03/2019 10:04am Height 65 inches 5'5" Weight 222.00 lb Heart Rate 77 /min BP Systolic Sitting 150 mmHg BP Diastolic Sitting 70 mmHg Body Temperature 97.4 F O2 % BldC Oximetry 97 % BMI (Body Mass Index) 36.9 kg/m2 03/01/2019 10:30am Height 65 inches 5'5" Weight 227.00 lb Heart Rate 86 /min BP Systolic Sitting 143 mmHg BP Diastolic Sitting 73 mmHg Body Temperature 97.8 F O2 % BldC Oximetry 96 % BMI (Body Mass Index) 37.8 kg/m2 Results Test Acquired Date Facility Test Result H/L Range Note CBC Auto 05/20/2019 [facility] White Blood 6.5 10^3/uL Normal 3.5-10.[address] [place] [address] [phone] Red Blood Count 4.72 10^6/uL Normal 3.70-4.87 Hemoglobin 14.8 g/dL Normal 12.0-16.0 Hematocrit 44 % Normal 35-47 Mean Corpuscular Volume 92 fL Normal 80-97 Mean Corpuscular Hemoglobin 31 pg Normal 27-31 Mean Corpuscular HGB Conc 34 g/dL Normal 31-36 Red Cell Distribution Width 14 % Normal 10-15 Platelet Count 295 10^3/uL Normal 150-450 Mean Platelet Volume 8.1 fL Normal 7.4-10.4 Abs Neutrophils 4.6 10^3/uL Normal 1.5-7.7 Abs Lymphocytes 1.2 10^3/uL Normal 1.0-4.8 Abs Monocytes 0.5 10^3/uL Normal 0-0.8 Abs Eosinophils 0.2 10^3/uL Normal 0-0.6 Abs Basophils 0.1 10^3/uL Normal 0-0.2 Abs Nucleated RBC 0.0 10^3/uL Granulocyte % 70.8 % Lymphocyte % 18.0 % Monocyte % 7.2 % Eosinophil % 3.1 % Basophil % 0.9 % Nucleated Red Blood Cells % 0.0 Laboratory test 05/20/2019 [facility] Lactic Acid 1.1 mmol/L Normal 0.5-2.0 1 finding [address] [place] [address] [phone] B-Type Natriuretic Peptide BNP 132 pg/mL High <=100 Comp Metabolic 05/20/2019 [facility] Sodium 138 mmol/L Normal 135-145 Panel [address] [place] [address] [phone] Potassium 4.5 mmol/L Normal 3.5-5.0 Chloride 103 mmol/L Normal 101-111 Co2 Carbon Dioxide 29 mmol/L Normal 22-32 Anion Gap 6 mmol/L Normal 2-11 Glucose 114 mg/dL High 70-100 Blood Urea Nitrogen 24 mg/dL Normal 6-24 Creatinine 0.84 mg/dL Normal 0.51-0.95 BUN/Creatinine Ratio 28.6 High 8-20 Calcium 9.6 mg/dL Normal 8.6-10.3 Total Protein 7.0 g/dL Normal 6.4-8.9 Albumin 4.3 g/dL Normal 3.2-5.2 Globulin 2.7 g/dL Normal 2-4 Albumin/Globulin Ratio 1.6 Normal 1-3 Total Bilirubin 0.60 mg/dL Normal 0.2-1.0 Alkaline Phosphatase 61 U/L Normal 34-104 Alt 15 U/L Normal 7-52 Ast 19 U/L Normal 13-39 Egfr Non- 65.2 >60 Egfr 78.9 >60 2 Laboratory test 05/20/2019 [facility] Magnesium 2.1 mg/dL Normal 1.9-2.7 finding [address] [place] [address] [phone] Creatine Kinase(CK) 36 U/L Normal 10-223 C Reactive Protein 1.03 mg/L Normal <8.01 Troponin-I (TnI) 0.07 ng/mL Critical high <0.03 3 TSH (Thyroid Stim Horm) 3.49 mcIU/mL Normal 0.34-5.60 Alcohol < 10 mg/dL Normal <10 Urinalysis Profile 05/20/2019 [facility] Urine Color Yellow [address] [place] [address] [phone] Urine Appearance Clear Urine Specific [place] 1.012 Normal 1.010-1.030 Urine pH 7.0 Normal 5-9 Urine Urobilinogen Negative Negative Urine Ketones Negative Negative Urine Protein Negative Negative Urine Leukocytes Negative Negative Urine Blood Negative Negative * * Abnormal Negative 4 Urine Nitrite Negative Negative Urine Bilirubin Negative Negative Urine Glucose Negative Negative Lipid Profile 05/20/2019 [facility] Triglycerides 113 mg/dL 5 (Trig/Chol/HDL) [address] [place] [phone] Cholesterol 148 mg/dL 6 HDL Cholesterol 47.0 mg/dL 7 LDL Cholesterol 78 mg/dL 8 Laboratory test 05/20/2019 [facility] Hemoglobin A1c 5.7 % High 4.0-5.6 [address] [place] [address] (Glyco HGB) [place] [address] [phone] 1 [facility] Severe Sepsis and Septic Shock Management Bundle Measure requires all lactic acids initially measuring >2.0 mmol/L be repeated. 2 Because ethnic data is not always readily available, this report includes an eGFR for both -Americans and non- Americans. The National Kidney Disease Education Program (NKDEP) does not endorse the use of the MDRD equation for patients that are not between the ages of 18 and 70, are , have extremes of body size, muscle mass, or nutritional status, or are non- or non-. According to the National Kidney Foundation, irrespective of diagnosis, the stage of the disease is based on the level of kidney function: Stage Description GFR(mL/min/1.73 m(2)) 1 Kidney damage with normal or decreased GFR 90 2 Kidney damage with mild decrease in GFR 60-89 3 Moderate decrease in GFR 30-59 4 Severe decrease in GFR 15-29 5 Kidney failure <15 (or dialysis) 3 Result TnIDx:0.07 Called to [id number] at: 11:25:30 by:[id number] Read back by: [id number] Troponin-I testing on Plasma Separator Tubes (PST) has a known false positive rate of 0.20-0.40%. All positive troponins reflex immediately to secondary confirmatory testing. Using the [employer] DxI 800 Access Immunoassay systems, the 99th percentile upper reference limit was demonstrated to be < 0.03 ng/mL. 4 *Ascorbic acid is present which may interfere with detection of blood. 5 Desirable: <150 Borderline High: 150-199 High: 200-499 Very High: >500 6 Desirable: <200 Borderline High: 200-239 High: >239 7 Low: <40 Desirable: 40-60 High: >60 8 Desirable: <100 Near Optimal: 100-129 Borderline High: 130-159 High: 160-189 Very High: >189 9 Therapeutic target for the treatment of diabetes mellitus patients is <7% HBA1C, and in selective patients <6.0%. Please refer to [place] [employer] diabetic care guidelines for further information. Procedures Date Code Description Status 01/16/2019 31638 EKG Tracing & Interpretation Completed 09/19/2018 [id number] Mammogram Completed 09/06/2017 [id number] Mammogram Completed 08/27/2015 [id number] Colonoscopy Completed 01/22/2015 [id number] Mammogram Completed 01/08/2014 [id number] Bone Mineral Density Test Completed 01/08/2014 [id number] Mammogram Completed 12/14/2012 [id number] Mammogram Completed 06/14/2010 [id number] Colonoscopy Completed 05/20/2010 [id number] Mammogram Completed Medical Devices Description No Information Available Encounters Type Date Location Provider Dx Diagnosis Office Visit 05/24/2019 [facility] H81.10 Benign paroxysmal 9:06a Assjae stroud, vertigo, Hospitalists Erick unspecified ear R00.1 Bradycardia, unspecified I48.20 Chronic atrial fibrillation, unspecified Office Visit 05/23/2019 [facility] H81.10 Benign 9:05a jae Galvin M.D. paroxysmal Hospitalists vertigo, unspecified ear R00.1 Bradycardia, unspecified I48.20 Chronic atrial fibrillation, unspecified Office Visit 05/22/2019 [facility] H81.10 Benign paroxysmal 9:05a jae Galvin M.D. vertigo, Hospitalists unspecified ear Office Visit 05/21/2019 [facility] H81.10 Benign paroxysmal 9:04a jae Galvin M.D. vertigo, Hospitalists unspecified ear Office Visit 03/01/2019 [facility] Jennifer Boo, I10 Essential 10:20a Medicine - Ccmob N.P. (primary) hypertension Z68.37 Body mass index (BMI) 37.0-37.9, adult Office Visit 01/16/2019 10:30a [facility] Jarrod D. I48.2 Chronic atrial Of Marisol Paul M.D. fibrillation I10 Essential (primary) hypertension Assessments Date Code Description Provider 06/03/2019 H81.10 Benign paroxysmal vertigo, unspecified ear Jennifer Boo, N.P. 05/24/2019 H81.10 Benign paroxysmal vertigo, unspecified ear Curt Moussallem, M.DTunde 05/24/2019 R00.1 Bradycardia, unspecified Curt Moussallem, M.D. 05/24/2019 I48.20 Chronic atrial fibrillation, unspecified Curt Moussallem, M.D. 05/23/2019 H81.10 Benign paroxysmal vertigo, unspecified ear Curt Moussallem, M.D. 05/23/2019 R00.1 Bradycardia, unspecified Curt Moussallem, M.D. 05/23/2019 I48.20 Chronic atrial fibrillation, unspecified Curt Moussallem, M.D. 05/22/2019 H81.10 Benign paroxysmal vertigo, unspecified ear Curt Goldstein M.D. 05/21/2019 H81.10 Benign paroxysmal vertigo, unspecified ear Curt Goldstein M.D. 05/20/2019 R42 Dizziness and giddiness Subha Garcia D.O. 05/20/2019 R79.89 Other specified abnormal findings of blood Subha Garcia D.O. chemistry 05/20/2019 I10 Essential (primary) hypertension Subha Garcia D.O. 03/01/2019 I10 Essential (primary) hypertension Jennifer Boo N.P. 03/01/2019 Z68.37 Body mass index (BMI) 37.0-37.9, adult Jennifer Boo N.Rubén 01/16/2019 I48.2 Chronic atrial fibrillation Jarrod Paul M.D. 01/16/2019 I10 Essential (primary) hypertension Jarrod Paul M.D. Plan of Treatment Future Appointment(s):09/02/2019 1:00 pm - Jennifer Boo N.P. at [facility]06/03/2019 - Jennifer Boo NWanH81.10 Benign paroxysmal vertigo , unspecified earComments:You have positional vertigo. You may take the Meclizine as needed if you are really feeling dizzy.Continue with your physical therapy. This should eventually pass. Functional Status Description No Information Available Mental Status Description No Information Available Referrals Description No Information Available
[2019-07-09 11:51] VITALS: BP 163/74
--- NOTE | 2019-07-09 11:56 | UC ---
Hand/Wrist HPI - HPI Summary HPI Summary: 78 yo female presents with RIGHT wrist pain. She tells me that about 1 week ago she hit her right lateral wrist against a chair. Since that time has had bruising and pain. Pain is improved, but is still present and worse with movement. She has not taken anything OTC for her symptoms. Denies numbness or tingling. She is right handed - History Of Current Complaint Chief Complaint: UCUpperExtremity Stated Complaint: RIGHT WRIST PAIN Time Seen by Provider: 07/09/19 11:55 Hx Obtained From: Patient Onset/Duration: Sudden Onset Severity Initially: Moderate Severity Currently: Moderate Pain Intensity: 5 Pain Scale Used: 0-10 Numeric - Allergies/Home Medications Allergies/Adverse Reactions: Allergies Allergy/AdvReac Type Severity Reaction Status Date / Time codeine Allergy Severe "makes Verified 07/09/19 11:51 feel like I'M flying" Home Medications: Home Medications Aspirin [Aspir 81] 81 mg PO DAILY 05/07/12 [History Confirmed 07/09/19] Famotidine TAB* [Pepcid 20 MG TAB*] 20 mg PO BID PRN 05/07/12 [History Confirmed 07/09/19] Simvastatin [Zocor 40 MG (NF)] 40 mg PO DAILY 05/07/12 [History Confirmed ] buPROPion SR TAB* [Wellbutrin SR TAB*] 150 mg PO QPM 05/07/12 [History Confirmed 07/09/19] Fish Oil/Borage/Flax/Om3,6,9 1 [[place] 3-6-9 Complex Softgel] 1 cap PO DAILY [History Confirmed 07/09/19] Multivitamin [Multivitamins] 1 cap PO DAILY 10/25/13 [History Confirmed 07/09/19 ] Rivaroxaban [Xarelto] 20 mg PO DAILY 10/25/13 [History Confirmed 07/09/19] Losartan/Hydrochlorothiazide [Losartan-Hctz 100-25 mg Tab] 1 tab PO DAILY [History Confirmed 07/09/19] Ascorbic Acid TAB* [Vitamin C TAB*] 1,000 mg PO DAILY 05/20/19 [History Confirmed 07/09/19] Nystatin/Triamcinolone CR(NF) [Mycolog CREAM*] 1 applic TOPICAL BID PRN [History Confirmed 07/09/19] PMH/Surg Hx/FS Hx/Imm Hx Endocrine History: Dyslipidemia Cardiovascular History: Hypertension, Atrial Fibrillation GI/ History: Gastroesophageal Reflux Other History Of: Anticoagulant Therapy - Surgical History Surgical History: Yes Surgery Procedure, Year, and Place: T&A, TUBAL LIGATION, APPENDECTOMY, CHOLECYSTECTOMY, RIGHT AN LEFT HIP REPLACEMENT, Right TKA - Family History Known Family History: Positive: Cardiac Disease - Mother, Father, Grandfather, Grandmother, Hypertension, Diabetes - Social History Lives: With Family Alcohol Use: Rare Alcohol Amount: WINE 2 X YEAR Substance Use Type: None Smoking Status (MU): Former Smoker Type: Cigarettes Amount Used/How Often: 1 PPD Have You Smoked in the Last Year: No When Did the Patient Quit Smoking/Using Tobacco: 1997 Household Exposure Type: Cigarettes - Immunization History Most Recent Influenza Vaccination: 2018 Most Recent Tetanus Shot: 2011 Most Recent Pneumonia Vaccination: 2014 Review of Systems All Other Systems Reviewed And Are Negative: No Constitutional: Positive: Negative Skin: Positive: Negative Respiratory: Positive: Negative Cardiovascular: Positive: Negative Neurovascular: Positive: Negative Musculoskeletal: Positive: Other: - Right wrist injury Neurological/Mental Status: Positive: Negative Psychological: Positive: Negative Physical Exam - Summary Physical Exam Summary: GENERAL: NAD. WDWN. No pain distress. SKIN: No rashes, sores, lesions, or open wounds. CHEST: No accessory muscle use. Breathing comfortably and in no distress. CV: Pulses intact radial and ulnar. Cap refill <2seconds MSK: RIGHT WRIST: Mild ttp about ulnar tendon. Pain with ulnar deviation and supination/pronation. 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 No edema or obvious bony deformities. No snuffbox tenderness. NTTP at scapholunate junction NEURO: Alert. Sensations intact hand and all fingers. PSYCH: Age appropriate behavior. Triage Information Reviewed: Yes Vital Signs: Initial Vital Signs Temp 97.8 F 07/09/19 11:48 Pulse 81 07/09/19 11:48 Resp 18 07/09/19 11:48 BP 163/74 07/09/19 11:48 Pulse Ox 99 07/09/19 11:48 Vital Signs Reviewed: Yes Diagnostics - Radiology Wrist XR Radiology Interpretation Completed By: Radiologist Summary of Radiographic Findings: IMPRESSION: Degenerative changes of the radiocarpal joint. 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 Degenerative changes of the first carpal metacarpal joint is noted. Hand/Wrist Course/Dx - Course Course Of Treatment: XR as above. Exam and area of pain does not correlate with XR findings. Placed pt in cock-up splint and advised to RICE and f/u with Orthopedics given continued pain - Differential Dx/Diagnosis Provider Diagnosis: Wrist pain Discharge ED - Sign-Out/Discharge Documenting (check all that apply): Patient Departure All imaging exams completed and their final reports reviewed: Yes - Discharge Plan Condition: Stable Disposition: HOME Patient Education Materials: Wrist Injury (ED) Referrals: Jennifer Boo NP [Primary Care Provider] - Idalia Atwood MD [Medical Doctor] - As Soon As Possible Additional Instructions: If you develop a fever, shortness of breath, chest pain, new or worsening symptoms - please call your PCP or go to the ED immediately. Your blood pressure was high at todays visit. Please see your primary provider within 4 weeks for recheck and re-evaluation. 1) Your X-ray today indicates that there may be a ligament injury to your wrist. 2) I recommend that you use the wrist splint as much as possible and call Orthopedics at the number below to schedule an appointment within 1 week for further evaluation. - Billing Disposition and Condition Condition: STABLE Disposition: Home
== END 2019-07-09 12:40 | disposition home or self-care (01) ==
LOC: UCEAST 11:31
DX: M18.11 Unilateral primary osteoarthritis of first carpometacarpal joint, right hand (principal); M19.031 Primary osteoarthritis, right wrist; M25.531 Pain in right wrist; E78.5 Hyperlipidemia, unspecified; I10 Essential (primary) hypertension; Z88.5 Allergy status to narcotic agent; Z79.82 Long term (current) use of aspirin; Z79.899 Other long term (current) drug therapy; Z87.891 Personal history of nicotine dependence
CPT/HCPCS: 99213; G0463

== ENCOUNTER 2021-04-28 11:11 | Inpatient (IN) ==
[2021-04-28 11:56] LABS: ABS Eosinophils 0.1 10^3/ul (0-0.6); ABS Lymphocytes 1.4 10^3/ul (1.0-4.8); ABS Monocytes 0.7 10^3/ul (0-0.8); ABS Neutrophils 6.3 10^3/ul (1.5-7.7); Eosinophil % 1.2 %; Hematocrit 41 % (35-47); Hemoglobin 13.8 g/dL (12.0-16.0); Lymphocyte % 16.8 %; Mean Corpuscular HGB Conc 34 g/dL (31-36); Mean Corpuscular Hemoglobin 32 pg (27-31); Mean Corpuscular Volume 94 fL (80-97); Mean Platelet Volume 8.6 fL (7.4-10.4); Platelet Count 316 10^3/uL (150-450); Red Blood Count 4.34 10^6 /uL (3.70-4.87); Red Cell Distribution Width 13 % (10-15); White Blood Count 8.6 10^3/uL (3.5-10.8)
[2021-04-28] MEDS ORDERED: Diazepam INJ CARPUJECT 5 MG/ML IV ONE (12:10)
[2021-04-28 12:14] LABS: ALT 16 U/L (7-52); AST 20 U/L (13-39); Albumin 4.1 g/dL (3.2-5.2); Albumin/Globulin Ratio 1.4 (1-3); Alkaline Phosphatase 70 U/L (35-149); Anion Gap 5 mmol/L (2-11); Blood Urea Nitrogen 10 mg/dL (6-24); CO2 Carbon Dioxide 32 mmol/L (22-32); Calcium 9.6 mg/dL (8.6-10.3); Chloride 104 mmol/L (101-111); Glucose 107 mg/dL (70-100); Potassium 3.9 mmol/L (3.5-5.0); Sodium 141 mmol/L (135-145); Total Protein 7.1 g/dL (6.4-8.9); eGFR CKD-EPI 83.4 (>60)
[2021-04-28 12:15] LABS: Troponin I 0.07 ng/mL (<0.03)
[2021-04-28] MEDS ORDERED: NS 0.9% 1000 ml BAG 1,000 ML IV SCH (12:15)
[2021-04-28 12:39] LABS: TSH Ultra Thyroid Stim Horm 3.75 mcIU/mL (0.34-5.60)
[2021-04-28 14:15] LABS: Urine Appearance Clear; Urine Bilirubin Negative (Negative); Urine Blood 1+ (Negative); Urine Color Yellow; Urine Glucose Negative (Negative); Urine Ketones Negative (Negative); Urine Nitrite Negative (Negative); Urine Protein Negative (Negative); Urine Specific Gravity 1.008 (1.002-1.030); Urine Urobilinogen Negative (Negative)
[2021-04-28 14:20] LABS: Urine Bacteria Absent (Absent); Urine Red Blood Cell 1+(3-5/hpf) (Absent); Urine Squamous Epithelial Cell Present (Absent); Urine White Blood Cell Trace(0-5/hpf) (Absent)
[2021-04-28] MEDS ORDERED: Ondansetron ODT 4 mg TAB 4 MG TAB SL PRN (16:52)
[2021-04-28 17:21] LABS: C Reactive Protein 1.41 mg/L (<8.01)
[2021-04-28 18:11] LABS: Troponin I 0.06 ng/mL (<0.03)
[2021-04-28] MEDS ORDERED: Losartan/HCTZ 100/25 TAB (NF) PO SCH (21:00)
[2021-04-28 22:03] LABS: Troponin I 0.07 ng/mL (<0.03)
[2021-04-28] MEDS: Aspirin EC 81 mg TAB.EC (enteric coated) PO SCH (22:28)
[2021-04-29 08:30] LABS: ABS Lymphocytes 1.3 10^3/ul (1.0-4.8); ABS Monocytes 0.5 10^3/ul (0-0.8); ABS Neutrophils 9.4 10^3/ul (1.5-7.7); Eosinophil % 0.1 %; Hematocrit 40 % (35-47); Hemoglobin 13.6 g/dL (12.0-16.0); Lymphocyte % 11.3 %; Mean Corpuscular HGB Conc 34 g/dL (31-36); Mean Corpuscular Hemoglobin 32 pg (27-31); Mean Corpuscular Volume 94 fL (80-97); Mean Platelet Volume 8.7 fL (7.4-10.4); Platelet Count 322 10^3/uL (150-450); Red Blood Count 4.28 10^6 /uL (3.70-4.87); Red Cell Distribution Width 13 % (10-15); White Blood Count 11.1 10^3/uL (3.5-10.8)
[2021-04-29 08:49] LABS: Calcium 9.7 mg/dL (8.6-10.3); Potassium 3.9 mmol/L (3.5-5.0); eGFR CKD-EPI 72.4 (>60)
[2021-04-29] MEDS ORDERED: Flu vaccine *QUAD* 2021-22* 0.5 ML SYRINGE IM ONE (09:00)
[2021-04-29] MEDS: Aspirin EC 81 mg TAB.EC (enteric coated) PO SCH (22:14)
[2021-04-30] MEDS: Aspirin EC 81 mg TAB.EC (enteric coated) PO SCH (20:05)
[2021-05-01] MEDS: Aspirin EC 81 mg TAB.EC (enteric coated) PO SCH (20:37)
[2021-05-02] MEDS: Aspirin EC 81 mg TAB.EC (enteric coated) PO SCH (20:02)
[2021-05-03] MEDS: Aspirin EC 81 mg TAB.EC (enteric coated) PO SCH (21:42)
[2021-05-04 16:10] VITALS: BP 138/60
== END 2021-05-04 18:00 | disposition home health service (06) | DRG 149 ==
LOC: ED 11:11 → EDHOLD 11:11 → SUATTDRO 16:52 → MEDTELE 21:09 → SUATTDRO 04-29 16:00
PROVIDERS: ADMIT Internal Medicine; ATTEND Hospitalist

== ENCOUNTER 2023-12-25 14:48 | Observation (INO) ==
[2023-12-25 19:43] LABS: ABS Basophils 0.1 10^3/uL (0.0-0.1); ABS Eosinophils 0.4 10^3/uL (0.0-0.5); ABS Lymphocytes 2.1 10^3/uL (1.0-4.8); ABS Monocytes 0.7 10^3/uL (0.0-0.9); ABS Neutrophils 4.9 10^3/uL (1.5-7.6); ABS Nucleated RBC 0.01 10^3/ul; Eosinophil % 4.5 %; Hematocrit 35.6 % (35-45); Hemoglobin 12.4 g/dL (11.5-14.3); Lymphocyte % 25.9 %; Mean Corpuscular Hemoglobin 32.2 pg (27-33); Mean Corpuscular Hgb Conc 34.8 g/dL (31-36); Mean Corpuscular Volume 92.5 fL (80-97); Mean Platelet Volume 7.7 fL (7.5-11.2); Nucleated Red Blood Cells % 0.1 %/100WBC (0.0-0.8); Platelet Count 487 10^3/uL (150-450); Red Blood Count 3.85 10^6/uL (3.63-4.92); Red Cell Distribution Width 13.6 % (12-17); White Blood Count 8.2 10^3/uL (3.8-11.8)
[2023-12-25] MEDS: Cefepime 2 GM in Dextrose 2 GM/50 ML BAG IV ONE (20:01)
[2023-12-25 20:25] LABS: Albumin 4.4 g/dL (3.2-5.2); Albumin/Globulin Ratio 1.7 (1-3); C Reactive Protein 5.35 mg/L (<8.01); Calcium 10.1 mg/dL (8.6-10.3); Creatinine, Serum 1.13 mg/dL (0.51-0.95); Globulin 2.6 g/dL (2-4); Potassium 3.8 mmol/L (3.5-5.0); Total Bilirubin 0.6 mg/dL (0.2-1.0); eGFR CKD-EPI 47.7 (>60)
[2023-12-25] MEDS: Vancomycin 1,500 MG in NS 0.9% 250 ml 250 ML IVPB ONE (21:13)
[2023-12-25] MEDS: Furosemide 40 mg/4 ml IV VIAL IV SLOW PU ONE (23:00)
[2023-12-25] MEDS: Iodixanol (CONTRAST) 320 MG/ML 100 ML SDV IV ONE (23:40)
[2023-12-26] MEDS ORDERED: ceFAZolin 1 GM ADVAN 1 GM in NS 0.9% 50 ML 50 ML IVPB SCH (05:00)
[2023-12-26] MEDS: ceFAZolin 1 GM ADVAN 1 GM in NS 0.9% 50 ML 50 ML IVPB SCH ×2 (05:51→15:59)
[2023-12-26] MEDS ORDERED: Vancomycin per Pharmacy 1 EA NOTE FOLLOW UP SCH (07:00)
[2023-12-26 09:53] LABS: ABS Basophils 0.1 10^3/uL (0.0-0.1); ABS Eosinophils 0.4 10^3/uL (0.0-0.5); ABS Lymphocytes 1.2 10^3/uL (1.0-4.8); ABS Monocytes 0.7 10^3/uL (0.0-0.9); ABS Neutrophils 5.3 10^3/uL (1.5-7.6); Eosinophil % 4.9 %; Hematocrit 34.6 % (35-45); Hemoglobin 11.7 g/dL (11.5-14.3); Mean Corpuscular Hemoglobin 31.2 pg (27-33); Mean Corpuscular Hgb Conc 33.7 g/dL (31-36); Mean Corpuscular Volume 92.6 fL (80-97); Mean Platelet Volume 7.5 fL (7.5-11.2); Platelet Count 433 10^3/uL (150-450); Red Blood Count 3.74 10^6/uL (3.63-4.92); Red Cell Distribution Width 13.5 % (12-17); White Blood Count 7.6 10^3/uL (3.8-11.8)
[2023-12-26 10:29] LABS: C Reactive Protein 4.35 mg/L (<8.01); Calcium 9.1 mg/dL (8.6-10.3); Creatinine, Serum 1.08 mg/dL (0.51-0.95); Potassium 3.4 mmol/L (3.5-5.0); eGFR CKD-EPI 50.3 (>60)
[2023-12-26] MEDS ORDERED: Vancomycin 1,250 MG in NS 0.9% 250 ml 250 ML IVPB SCH (21:00)
[2023-12-26] MEDS: Nystatin TOP POWDER 15 GM BTL TOPICAL SCH (23:11)
[2023-12-27 06:33] LABS: ABS Basophils 0.1 10^3/uL (0.0-0.1); ABS Eosinophils 0.5 10^3/uL (0.0-0.5); ABS Lymphocytes 1.5 10^3/uL (1.0-4.8); ABS Monocytes 0.8 10^3/uL (0.0-0.9); ABS Neutrophils 4.1 10^3/uL (1.5-7.6); Eosinophil % 6.8 %; Hematocrit 32.5 % (35-45); Hemoglobin 11.1 g/dL (11.5-14.3); Lymphocyte % 21.6 %; Mean Corpuscular Hemoglobin 31.4 pg (27-33); Mean Corpuscular Volume 92.6 fL (80-97); Mean Platelet Volume 7.8 fL (7.5-11.2); Platelet Count 434 10^3/uL (150-450); Red Blood Count 3.52 10^6/uL (3.63-4.92); Red Cell Distribution Width 13.4 % (12-17); White Blood Count 6.9 10^3/uL (3.8-11.8)
[2023-12-27 07:49] LABS: Calcium 9.1 mg/dL (8.6-10.3); Creatinine, Serum 0.89 mg/dL (0.51-0.95); Potassium 3.9 mmol/L (3.5-5.0); eGFR CKD-EPI 63.5 (>60)
[2023-12-27] MEDS ORDERED: Aspirin EC 81 mg TAB.EC (enteric coated) PO SCH (09:00)
[2023-12-27] MEDS: Potassium Chlor 20 meq TAB.ER PO SCH (09:31)
[2023-12-28 14:25] VITALS: BP 114/56
[2023-12-28] MEDS ORDERED: Vancomycin Trough Check NOTE FOLLOW UP ONE (20:30)
== END 2023-12-28 16:50 | disposition home health service (06) ==
LOC: EDHOLD 14:48 → ED 14:48 → SUATTDRO 12-26 01:43 → MED 12-26 13:35
PROVIDERS: ADMIT Internal Medicine; ATTEND Hospitalist